=== PATIENT | male | born 1945 | race Caucasian/White ===

== ENCOUNTER 2018-11-09 20:29 | Inpatient (IN) | payer MEDICARE ==
[2018-11-09] MEDS ORDERED: NS 0.9% 1000 ML** 1,000 ML IV ONE (21:16)
--- NOTE | 2018-11-09 21:28 | ED ---
Neurological HPI - HPI Summary HPI Summary: The patient is a 73 year old male who is presenting to the [facility] from [facility] via ambulance with c/o of right hand numbness, weakness and bilateral leg weakness. The patient describes the onset of the symptoms as occurring at around 1500 to 1530. The patient was sitting down and on the internet when the right hand weakness occurred and the patient describes his legs as "spaghetti" and wobbly. The patient was seen at [facility] at around 1630 prior to [facility] arrival. A CT scan was taken at the [facility]. An aspirin was taken earlier in the day. The patient has been able to walk normally prior to onset of symptoms and was also able to drive. PMHx includes type 2 DM and HTN. Cardiac stent is also noted by the patient when discussing pervious medical history. Patient's reports of slurred speech prior to [facility] arrival and an inability for the patient to lift his legs. The pain is rated to be a 0/10 in severity. The Symptoms are alleviated by nothing. The symptoms are aggravated by nothing. - History of Current Complaint Chief Complaint: EDNeurologicalDeficit Stated Complaint: STROKE PER EMS Time Seen by Provider: 11/09/18 20:58 Hx Obtained From: Patient, Family/[employer] Captain - Onset/Duration: Sudden Onset Pain Intensity: 0 Pain Scale Used: 0-10 Numeric Aggravating: Nothing Alleviating: Nothing Associated Signs and Symptoms: Positive: Weakness - Right hand and bilateral leg weakness, Impaired Speech, Numbness - Right hand - Allergy/Home Medications Allergies/Adverse Reactions: Allergies Allergy/AdvReac Type Severity Reaction Status Date / Time No Known Allergies Allergy Verified 11/09/18 20:38 Home Medications: Home Medications Aspirin TAB* [Aspirin 325 MG TAB*] 325 mg PO DAILY 11/09/18 [History Confirmed 11/09/18] Canagliflozin (NF) [Invokana (NF)] 300 mg PO DAILY 11/09/18 [History Confirmed 11/09/18] Glimepiride 2 mg PO QAM 11/09/18 [History Confirmed 11/09/18] Ramipril CAP* [Altace CAP*] 10 mg PO DAILY 11/09/18 [History Confirmed 11/09/18] Simvastatin TAB(NF) [Zocor(NF)] 40 mg PO 1700 11/09/18 [History Confirmed ] Sitagliptin Phosphate [Januvia] 100 mg PO DAILY 11/09/18 [History Confirmed 07/18] PMH/Surg Hx/FS Hx/Imm Hx Endocrine/Hematology History: Reports: Hx Diabetes Cardiovascular History: Reports: Hx Hypertension Infectious Disease History: No Infectious Disease History: Denies: Traveled Outside the [place] in Last 30 Days - Family History Known Family History: Positive: Non-Contributory Family History: Reviewed and Noncontributory - Social History Occupation: Retired Lives: With Family Alcohol Use: None Substance Use Type: Reports: None Smoking Status (MU): Heavy Every Day Tobacco Smoker Review of Systems Constitutional: Negative Eyes: Negative ENT: Negative Positive: Epistaxis Cardiovascular: Negative Respiratory: Negative Gastrointestinal: Negative Genitourinary: Negative Musculoskeletal: Other - Inability to lift legs prior to Intial examination Skin: Negative Positive: Weakness - Right hand weakness and Bilateral Leg weakness, Numbness - Right hand, Slurred Speech Psychological: Normal All Other Systems Reviewed And Are Negative: Yes Physical Exam - Summary Physical Exam Summary: VITAL SIGNS: Reviewed. GENERAL: Patient is a well-developed and nourished (MALE OR FEMALE) who is lying comfortable in the stretcher. Patient is not in any acute respiratory distress. HEAD AND FACE: No signs of trauma. No ecchymosis, hematomas or skull depressions. No sinus tenderness. EYES: PERRLA, EOMI x 2, No injected conjunctiva, no nystagmus. EARS: Hearing grossly intact. Ear canals and tympanic membranes are within normal limits. MOUTH: Oropharynx within normal limits. NECK: Supple, trachea is midline, no adenopathy, no JVD, no carotid bruit, no c- spine tenderness, neck with full ROM. CHEST: Symmetric, no tenderness at palpation LUNGS: Clear to auscultation bilaterally. No wheezing or crackles. CVS: Regular rate and rhythm, S1 and S2 present, no murmurs or gallops appreciated. ABDOMEN: Soft, non-tender. No signs of distention. No rebound no guarding, and no masses palpated. Bowel sounds are normal. EXTREMITIES: FROM in all major joints, no edema, no cyanosis or clubbing. NEURO: Right facial droop; Right Upper Extremity Drift; Difficulty ambulating SKIN: Dry and warm Triage Information Reviewed: Yes Vital Signs On Initial Exam: Initial Vitals Temp Pulse Resp BP Pulse Ox 98.5 F 69 19 145/91 97 11/09/18 20:34 11/09/18 20:34 11/09/18 20:34 11/09/18 20:34 11/09/18 20:34 Vital Signs Reviewed: Yes Diagnostics - Vital Signs Vital Signs Temp Pulse Resp BP Pulse Ox 11/09/18 20:38 64 23 140/89 96 11/09/18 20:34 98.5 F 69 19 145/91 97 - Laboratory Result Diagrams: 11/09/18 21:45 11/09/18 21:45 Lab Statement: Any lab studies that have been ordered have been reviewed, and results considered in the medical decision making process. - Radiology Chest X-Ray Radiology Interpretation Completed By: ED Physician Summary of Radiographic Findings: Chest X-ray reveals no acute processes as per ED Physician. - CT Brain CT CT Interpretation Completed By: Radiologist Summary of CT Findings: Brain CT reveals as per radiologist. 1. Small focus of low density involving the left lentiform nucleus extending to. the gómez radiata concerning for acute left MCA infarct. 2. No acute intracranial hemorrhage. ED physician has reviewed this radiology report. Head and Neck CTA CT Interpretation Completed By: Radiologist Summary of CT Findings: Head and Neck CTA reveals as per radiologist,. Head CTA reveals 1. No hemodynamically significant stenosis or large vessel occlusion. 2. 2 mm right MCA bifurcation aneurysm. Neck CTA reveals No hemodynamically significant stenosis. The ED Physician has reviewed these radiology findings. - EKG 2130 EKG Rhythm: Sinus Bradycardia - [address] Segment: Non-Specific Summary of EKG Findings: EKG at 2130 Reveals 58 bpm sinus bradycardia; PACs and nonspecific ST wave changes. NIH Scale - NIH Scale Level of Consciousness: Alert/Keenly Responsive Ask Patient the Month and His/Her Age: Both Correct Ask Pt to Open/Close Eyes and [place]/Release Non-Paretic Hand: Both Correctly Best Gaze (Only Horizontal Eye Movement): Normal Visual Field Testing: No Visual Loss Facial Paresis-Pt to Smile & Close Eyes or Grimace Symmetry: Complete Paralysis Motor Function - Right Arm: Effort Against [place] Motor Function - Left Arm: No Drift-Holds 10 Seconds Motor Function - Right Leg: No Drift-Holds 10 Seconds Motor Function - Left Leg: No Drift-Holds 10 Seconds Limb Ataxia-Must be out of Proportion to Weakness Present: Present in One Limb Sensory (Use Pinprick to Test Arms/Legs/Trunk/Face): Normal Best Language (Describe Picture, Name Items): No Aphasia Dysarthria (Read Several Words): Slurs Some Words Extinction and Inattention: No Abnormality - Pt has difficulty standing and walking. Total Score: 7 NIH Stroke Scale Comment: Pt has difficulties standing and walking. Pulling toward the right. Re-Evaluation - Re-Evaluation 2139 Re-Evaluation Time: 21:40 Comment: We tested his gait and his ambulation. Course/Dx - Course Course Of Treatment: The patient is a 73 year old male who is presenting to the [facility] with a c/o of right hand weakness, bilateral leg wekaness and right hand numbness. Upon recieving the physical examination, the patient shows signs of right facial droop, right upper extremity drift and difficulty ambulating which are novel compared to baseline (patient states he is able to drive and walk without a walker prior to onset of current symptoms). Ishaan cortes was called at 2115. We discussed with the Stroke center the case at 2117 and they will contact the neurologist at [facility]. We discussed the case with the neurologist Dr. Keenan at [facility], and he recommended waiting for the Head CTA results. If the results are to show a large vessel occlusion, then he recommends beginning clot removal procedure. If there is no occlusion, then no clot removal procedure will be done. In the ED Course, the patient received an EKG, Chest X-ray, Head CTA, and Brain CT. Chest X-ray as per ED Physician reveals no acute processes. We reevaluated the patient in order to test his gait and ambulation at 2139. We discussed Head CTA , Brain CT scans and the [facility] CT scan findings with Dr. Keenan at 2204 and he does not at this time see clots in the CTA. He also does not see much of a difference between the two CT scans done at [facility] and at the [facility]. Critical Care time of 50 minutes. We discussed patient care with Dr. Jevon Ordoñez and he accepts patient care at this time (2319). The dx will be CVA. [place] [facility] - Diagnoses Provider Diagnoses: CVA (cerebral vascular accident) - Physician Notifications Discussed Care Of Patient With: Jevon Ordoñez - Patient Care discussion Time Discussed With Above Provider: 23:20 Instructed by Provider To: Admit As Observation - Critical Care Time Critical Care Time: 30-74 min - 50 minutes Discharge - Sign-Out/Discharge Documenting (check all that apply): Patient Departure - [place] [facility] [place] Discharge Plan Condition: Stable Disposition: ADMITTED TO [facility] Referrals: No Primary Care Phys,NOPCP [Primary Care Provider] - - Attestation Statements Document Initiated by Scribe: Yes Documenting Scribe: Ward Coelho Provider For Whom Scribe is Documenting (Include Credential): Dr. Junior Duggan Scribe Attestation: IWard, scribed for Dr. Junior Duggan on 11/09/18 at 7598. Status of Scribe Document: Ready
[2018-11-09] MEDS ORDERED: Iodixanol* (CONTRAST) 320 MG/ML 100 ML SDV IV ONE (21:30)
[2018-11-09 21:53] LABS: ABS Basophils 0.1 10^3/ul (0-0.2); ABS Eosinophils 0.2 10^3/ul (0-0.6); ABS Lymphocytes 1.9 10^3/ul (1.0-4.8); ABS Monocytes 0.8 10^3/ul (0-0.8); ABS Neutrophils 5.4 10^3/ul (1.5-7.7); ABS Nucleated RBC 0 10^3/ul; Eosinophil % 1.9 %; Hematocrit 44 % (36-46); Hemoglobin 14.7 g/dL (14.0-18.0); Lymphocyte % 23.4 %; Mean Corpuscular HGB Conc 33 g/dL (31-36); Mean Corpuscular Hemoglobin 30 pg (27-31); Mean Corpuscular Volume 89 fL (80-94); Mean Platelet Volume 9.1 fL (7.4-10.4); Nucleated Red Blood Cells % 0.1; Platelet Count 189 10^3/uL (150-450); Red Blood Count 4.95 10^6 /uL (4.18-5.48); Red Cell Distribution Width 15 % (10.5-15); White Blood Count 8.3 10^3/uL (3.5-10.8)
[2018-11-09 22:04] LABS: Activated Partial Thrombo Time 36.8 seconds (26.0-36.3); INR 0.93 (0.77-1.02)
[2018-11-09 22:11] LABS: Albumin 4.1 g/dL (3.2-5.2); Albumin/Globulin Ratio 1.4 (1-3); BUN/Creatinine Ratio 16.3 (8-20); Calcium 9.4 mg/dL (8.6-10.3); EGFR Non-African American 75.2 (>60); Globulin 2.9 g/dL (2-4); HDL Cholesterol 41.8 mg/dL; Potassium 3.8 mmol/L (3.5-5.0); Total Bilirubin 0.3 mg/dL (0.2-1.0)
[2018-11-09 23:04] LABS: Urine Appearance Clear; Urine Bacteria Absent (Absent); Urine Bilirubin Negative (Negative); Urine Blood 1+ (Negative); Urine Color Yellow; Urine Glucose 3+(>=500 mg/dL) (Negative); Urine Ketones Negative (Negative); Urine Nitrite Negative (Negative); Urine Protein Negative (Negative); Urine Red Blood Cell Trace(0-2/hpf) (Absent); Urine Specific Gravity 1.023 (1.010-1.030); Urine Urobilinogen Negative (Negative); Urine White Blood Cell Trace(0-5/hpf) (Absent)
[2018-11-10] MEDS ORDERED: Acetaminophen TAB* 325 MG PO ONE (01:11)
[2018-11-10] MEDS ORDERED: Acetaminophen SUPP* 650 MG SUPP PR ONE (01:21)
[2018-11-10] MEDS ORDERED: Nicotine Inhaler* 10 MG AMP INH PRN (02:31)
[2018-11-10] MEDS ORDERED: Ondansetron INJ* 2 MG/ML VIAL IV PRN (02:35)
[2018-11-10] MEDS ORDERED: NS 0.9% 1000 ML** 1,000 ML IV SCH ×2 (02:45→15:45)
[2018-11-10] MEDS: Heparin VIAL(*) 5000 UNITS/ML VIAL (FIVE THOUSAND) SUBCUT SCH ×3 (04:12→21:56)
[2018-11-10] MEDS: Acetaminophen TAB* 325 MG PO PRN ×2 (05:14→18:44)
--- NOTE | 2018-11-10 07:10 | HP ---
ADMISSION HISTORY AND PHYSICAL: DATE OF ADMISSION: PRIMARY CARE PROVIDER: Dr. Guy Wheat, [facility]. HEALTHCARE PROXY: His . CODE STATUS: Full. SOURCE OF INFORMATION: History obtained from interview with the patient and his . RELIABILITY: Good. CHIEF COMPLAINT: Right-sided weakness. HISTORY OF PRESENT ILLNESS: This is a 73-year-old man, lifetime heavy smoker, with hypertension and diabetes, CAD with a stent in 1999, but in his usual state of health, who woke up this morning, gener ally active. Around 3:00 p.m., was using his phone, was on Facebook and noticed that he could not pu sh the button, stood up, and his legs felt like spaghetti. This continued for about an hour and he b ady to develop slurred speech, for which he went to a walk-in clinic, was directed immediately to [facility] Emergency Room. He was there until approximately 7:30, at which time he was transferred to [facility] ED. ED arrival was 8:29. Based on review of records with the last known normal of 3:00 p.m., a co jones was called. TPA was not administered secondary to time of arrival, duration since onset of s ymptoms outside of the possible window. Since 3:00 p.m. until the time of evaluation, he identified worsening strength on his right and now the dense hemiparesis of right arm and right leg. His NIH St roke Scale was 4 on presentation. He has never had any history of TIAs or other strokes. He has no headache, lightheadedness, nausea, vomiting, sensation of choking, although he has not eaten since be ing at the emergency room. PAST MEDICAL HISTORY: Includes: 1. Type 2 diabetes. 2. Hypertension. 3. CAD with stents in 1999. 4. Pancreatitis. 5. Hyperlipidemia. 6. Cataract bilaterally. HOME MEDICATIONS: 1. Ramipril 10 mg daily. 2. Aspirin 325 mg daily. 3. Januvia 100 mg daily. 4. Glimepiride 2 mg daily. 5. Simvastatin 40 mg in the evening. 6. Invokana 300 mg daily. ALLERGIES: No known drug allergies. FAMILY HISTORY: No family history of CAD, but his father had a CVA. SOCIAL HISTORY: Heavy tobacco for 50 to 60 years, currently half a pack per day, 4 packs per day at its peak. No alcohol. 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 Recently sold his home, is living wit h his brother in [place] until moving into a new place [place] There are approximately 15 to 20 stairs to get into his current home. REVIEW OF SYSTEMS: As per HPI. PHYSICAL EXAMINATION VITAL SIGNS: Blood pressure 140/89, heart rate is 64, respiratory rate is 19, 96% on room air, T-max 98.5. DIAGNOSTIC STUDIES/LAB DATA: Labs reviewed: Largely bland. Cbask-jh-[id number] glucose 143. Nonfasting cholesterol is 100 with an LDL of 34 and HDL of 41. Data reviewed: CT of his brain, small focus of low density involving the left lentiform nucleus exte nding to the gómez radiata, concerning for acute left MCA infarct. Head CTA, impression: No hemody namically significant stenosis. Chest x-ray, no active cardiopulmonary disease on preliminary interpretation by this author. Follow formal interpretation in the morning. EKG: Sinus bradycardia with ventricular rate of 50 beats, borderline left axis, early R-wave progres jaydon. No ST or T-wave changes. ASSESSMENT AND PLAN: This 73-year-old man with past medical history of hypertension, diabetes, hyper lipidemia, heavy tobacco use, coronary artery disease presenting with suspected left middle cerebral artery stroke. 1. Acute stroke. Continue aspirin in the morning and Plavix. Neuro consultation. Add on hemoglobin A1c to ER labs. We will not recheck lipids given low levels nonfasting. MRI ordered and pending. Ordered transthoracic echocardiogram with bubble study. Bedside swallow eval; if fails, formal swall ow eval. PT/OT and speech therapy ordered as well as neuro checks. 2. Hypertension. Holding lisinopril, permitting hypertension. 3. Type 2 diabetes. Continue Januvia and glimepiride. Invokana not available. Fingerstick glucose monitoring, can initiate insulin if necessary inpatient, but would recommend medication that patient can leave on instead of sliding scale insulin. I note that he is not on metformin for unknown reason s to this author. 4. Tobacco abuse. Counseled cessation, start with nicotine inhaler. 5. DVT prophylaxis. Heparin subcu to start in the morning. [id number]/[facility] #: [id number]
[2018-11-10] MEDS: CMCS: SitaGLIPtin (NF) 100 MG TAB PO SCH (08:52)
[2018-11-10] MEDS: Clopidogrel TAB* 75 MG PO SCH (08:52)
[2018-11-10] MEDS: Aspirin TAB* 325 MG PO SCH (08:52)
[2018-11-10] MEDS: CMCS: Glimepiride (NF) 2 MG TAB PO SCH (08:52)
[2018-11-10] MEDS ORDERED: Aspirin 81 mg CHEW TAB* 81 MG TAB.CHEW PO SCH (09:00)
--- NOTE | 2018-11-10 09:22 | PN ---
Subjective Date of Service: 11/10/18 Interval History: HD#2 on 11/10 ID: 73 yo M PMH tob use, HTN, CAD s/p PCI, NIDDM, who presented with ~10 hours of stroke sx to ED found to have L MCA CVA with R hemiparesis, no large vessel obstruction, admitted for stroke workup Overnight no acute events, VSS, voiding freely Labs: Normal save for hypergly This afternoon seen in bed, patient is visibly distraught, crying and frustrated , garbled speech but understandable, with denture plate in- denies pain anywhere , has recollection of events. No CP, SOB, some mild plantar flexion on R LE, RUE with 0/5 strength and persistent R facial droop Objective Active Medications: Acetaminophen (Tylenol Tab*) 650 mg PO Q4H PRN PRN Reason: FEVER/PAIN Last Admin: 11/10/18 05:14 Dose: 650 mg Aspirin (Aspirin Tab*) 325 mg PO DAILY [facility] Last Admin: 11/10/18 08:52 Dose: 325 mg Atorvastatin Calcium (Lipitor*) 20 mg PO 1700 NANO Clopidogrel Bisulfate (Plavix Tab*) 75 mg PO DAILY [facility] Last Admin: 11/10/18 08:52 Dose: 75 mg Glimepiride (Glimepiride (Nf)) 2 mg PO QAM [facility]; Protocol Last Admin: 11/10/18 08:52 Dose: 2 mg Heparin Sodium (Porcine) (Heparin Vial(*)) 5,000 units SUBCUT Q8HR [facility] Last Admin: 11/10/18 04:12 Dose: 5,000 units Sodium Chloride (Ns 0.9% 1000 Ml) 1,000 mls @ 100 mls/hr IV PER RATE [facility] Stop: 11/10/18 12:44 Last Admin: 11/10/18 04:12 Dose: 100 mls/hr Nicotine (Nicotine Inhaler*) 10 mg INH Q2H PRN PRN Reason: CRAVING Ondansetron HCl (Zofran Inj*) 4 mg IV Q4H PRN PRN Reason: NAUSEA/VOMITING Sitagliptin Phosphate (Januvia (Nf)) 100 mg PO DAILY [facility]; Protocol Last Admin: 11/10/18 08:52 Dose: 100 mg Vital Signs - 8 hr 11/10/18 11/10/18 11/10/18 01:29 01:58 02:00 Temperature Pulse Rate 68 63 64 Respiratory 18 16 22 Rate Blood Pressure 122/75 121/84 (mmHg) O2 Sat by Pulse 96 95 97 Oximetry 11/10/18 11/10/18 11/10/18 02:29 02:59 03:00 Temperature Pulse Rate 71 71 73 Respiratory 18 18 14 Rate Blood Pressure 145/78 127/88 (mmHg) O2 Sat by Pulse 96 94 94 Oximetry 11/10/18 11/10/18 11/10/18 03:22 03:25 08:00 Temperature 98.5 F 97.5 F Pulse Rate 79 73 Respiratory 14 17 18 Rate Blood Pressure 127/88 137/68 (mmHg) O2 Sat by Pulse 94 95 Oximetry 11/10/18 08:05 Temperature 97.8 F Pulse Rate 53 Respiratory 18 Rate Blood Pressure 129/73 (mmHg) O2 Sat by Pulse 97 Oximetry Oxygen Devices in Use Now: None Appearance: Lying in bed in distress, tearful and crying Eyes: PERRLA Ears/Nose/Mouth/Throat: Mucous Membranes Moist, - - Upper denture plate Neck: NL Appearance and Movements; NL JVP Respiratory: Clear to Auscultation Cardiovascular: NL Sounds; No Murmurs; No JVD, RRR Abdominal: NL Sounds; No Tenderness; No Distention, No Hepatosplenomegaly Lymphatic: No Cervical Adenopathy Extremities: No Edema Skin: No Rash or Ulcers Neurological: Alert and Oriented x 3, - - Sig dysarthria-Cranial nerves: R facial droop, did not assess visual padilla. Strength: RUE 0/5, gross sensory intact, RLE plantar flexion only 2/5 gross sensory intact, LUE 5/5, LLE 5/5 Result Diagrams: 11/09/18 21:45 11/09/18 21:45 Assess/Plan/Problems-Billing Assessment: 73 yo M PMH tob use, HTN, CAD s/p PCI, NIDDM, who presented with ~10 hours of stroke sx to ED found to have L possible MCA CVA with R hemiparesis, no large vessel obstruction, admitted for stroke workup - Patient Problems (1) Acute ischemic left MCA stroke Current Visit: Yes Status: Acute Code(s): I63.512 - CEREB INFRC D/T UNSP OCCLS OR STENOS OF LEFT MID CEREB ART SNOMED Code(s): 567368462 Comment: -Head of bed flat, avoid hypotension, Normal saline 100cc/hr for addnl 1 L -Neuro checks -Neurology consulted, appreciate recs -Asa/Plavix (Asa at 325), Atorva 20 -Echo with bubble, MRI -PT/OT (2) Hypertension Current Visit: Yes Status: Acute Code(s): I10 - ESSENTIAL (PRIMARY) HYPERTENSION SNOMED Code(s): 55812193 Comment: -Hold home meds for now (3) Diabetes Current Visit: Yes Status: Acute Code(s): E11.9 - TYPE 2 DIABETES MELLITUS WITHOUT COMPLICATIONS SNOMED Code(s): 01241113 Comment: -Type 2, not on Metformin, continue Sitagliptin and Glimeperide, holding canaglaflozin (4) Tobacco dependence Current Visit: Yes Status: Acute Code(s): F17.200 - NICOTINE DEPENDENCE, UNSPECIFIED, UNCOMPLICATED SNOMED Code(s): 30079305 Comment: -Offer NRT PRN (5) CAD (coronary artery disease) Current Visit: Yes Status: Acute Code(s): I25.10 - ATHSCL HEART DISEASE OF [place] CORONARY ARTERY W/O ANG PCTRS SNOMED Code(s): 38278964 Comment: -s/p PCI -On 2/2 prvention: Asa, Statin, holding ALYSON (6) Anxiety Current Visit: Yes Status: Acute Code(s): F41.9 - ANXIETY DISORDER, UNSPECIFIED SNOMED Code(s): 95684253 Comment: -Largely 2/2 to stroke diagnosis, situational, offer PRN atarax (7) DVT prophylaxis Current Visit: Yes Status: Acute Code(s): VMM3934 - SNOMED Code(s): 461251945 Comment: -SQ (8) Full code status Current Visit: Yes Status: Acute Code(s): Z78.9 - OTHER SPECIFIED HEALTH STATUS SNOMED Code(s): 559607401 Status and Disposition: Neurology following, needs PT/OT and echo prior to d/c
[2018-11-10] MEDS: Atorvastatin* 20 MG TAB PO SCH (15:09)
--- NOTE | 2018-11-10 15:18 | CONS ---
NEUROLOGY CONSULTATION: DATE OF CONSULT: 11/10/18 LOCATION: He is in room 438. REFERRING PHYSICIAN: Dr. Ordoñez. CHIEF COMPLAINT: Right-sided weakness. HISTORY OF PRESENT ILLNESS: Velasquez Whelan is a 73-year-old right-handed man, who at about 3 o'clock yesterday noted that he was having difficulty standing up. He realized his right side had become weak. He drove himself to the walk- in clinic adjacent to [facility]. He was transferred to the emergency room. Subsequently, he was transferred to [facility] Emergency Room at about 8:30 in the evening. Evaluation in the emergency room was notable for right hemiparesis. According to Dr. Ordoñez's admitting history and physical, he had a dense hemiparesis of the right arm and right leg. According to Dr. Duggan's emergency room examination, he had a right facial droop, right upper extremity drift, and difficulty ambulating. Initial CT scan of the brain was interpreted by the radiologist as showing low density involving the left lentiform nucleus extending into the gómez radiata. CT angiogram of the brain was interpreted as showing no significant stenosis or large vessel occlusions as well as a 2-mm right MCA bifurcation aneurysm. There is no prior history of transient ischemic attack or stroke. He has a history of coronary artery disease, status post stenting; hypertension; hyperlipidemia; diabetes. He denies any sense of numbness in the right side or difficulty swallowing. He has not had any problems coming up with words. He denies change in vision or headaches. Only recent change in medications was metformin was discontinued because of diarrhea and Invokana was started in the last couple of months. PAST MEDICAL HISTORY: Notable for diabetes, coronary artery disease, hypertension, and tobacco dependence. MEDICATIONS: At home, consists of: 1. Aspirin 325 mg p.o. q. day. 2. Invokana 300 mg p.o. q. day. 3. Glimepiride 2 mg p.o. q. day. 4. Ramipril 10 mg p.o. q. day. 5. Simvastatin 40 mg p.o. q. day. 6. Januvia 100 mg p.o. q. day. ALLERGIES: He has no known drug allergies. SOCIAL HISTORY: He socially lives at home with his . He is an ongoing tobacco smoker. He does not drink alcohol. REVIEW OF SYSTEMS: Negative for recent falls, fevers, or infections. He takes his medications on a regular basis. His blood glucose has not been well controlled according to his after a switch from metformin to Invokana. He had some diarrhea on metformin, but then it resolved. His family believes he has lost weight this past year, but there is no specific numbers known. No recent increase in shortness of breath or chest pain. No history of epilepsy or head trauma. PHYSICAL EXAM: He is a somewhat overly thin man who looks a bit older than his stated age. He has been afebrile throughout his hospital stay. Blood pressure most recently is 129/73, it was 145/91 when he first came to the floor. Heart rates in the 60s and regular, respiratory rate is 19, and oxygen saturation is 97% on room air. Heart tones are distant and I do not hear any murmurs. There are no cervical bruits. Oral mucosa is moist and atraumatic. Lungs are clear bilaterally. Neurological exam, pupils react equally from 2.5 down to 2 mm. Eye movements are full. Funduscopic exam reveals silver wiring, but no hemorrhages. Optic discs are sharp. Visual padilla are full to confrontation. Facial musculature is notable for a dense central pattern right facial weakness. Facial sensation to light touch and pin is symmetrical. Speech is dysarthric. Palate pulls to the left with phonation, but tongue protrudes in the midline. Hearing is intact. Neck strength is normal. Motor exam reveals a flaccid right upper extremity with no volitional movement. He is able to extend the right knee with about a 30-degree extensor lag. He is able to raise the right hip up weakly, but not provide resistance. He has no dorsiflexion strength in the right foot, but some relatively minimal plantarflexion strength is retained. He has normal strength of the left arm and left leg proximally and distally. Sensory exam to pin and light touch is symmetrical in upper and lower extremities. Reflexes are brisk, brisker on the right side than the left. He has a right Babinski sign where the left is plantar. Coordination in the left arm is normal. He is alert with intact memory and fluent language. There is no evidence of word- finding problems. He is aware of his deficits. DIAGNOSTIC STUDIES/LAB DATA: CT of the brain images are reviewed personally. There is loss of vazquez-white matter demarcation of the left lentiform nucleus into the left internal capsule. CT angiogram of the brain is reviewed. There is no significant intracranial or extracranial stenosis. There is a tiny 2-mm aneurysm at the right middle cerebral artery bifurcation. Other laboratory data is notable for a normal CBC on admission, normal INR 0.93 and borderline elevated PTT at 36.8. Chemistry profile notable for carbon dioxide at 20, glucose of 117, hemoglobin A1c this morning is 8.5%. Cholesterol was 100 yesterday evening and LDL 34. The rest of the chemistry profile was unremarkable. Urinalysis, 11/09/18, notable for 3+ glucose. EKG revealed some atrial ectopy, but otherwise sinus rhythm. Chest x-ray is interpreted as no evidence for acute disease. The lungs are described as hyperinflated and clear. IMPRESSION AND PLAN: Impression is that of subcortical left hemisphere infarction. Typical location for pure motor hemiparesis would be the posterior limb of the internal capsule. It seems that he worsened from the time he presented to [facility] to last night. He may have worsened overnight as well from his description. I would recommend that he be kept in bed with the head of bed flat other than when he is up to eat. Recommend that he be kept well hydrated. Plavix was added last evening and I agree with dual-antiplatelet therapy with aspirin 325 mg and Plavix 75 mg. He should have an MRI of the brain without contrast and a transthoracic echocardiogram. The likely mechanism of his stroke is small vessel lacunar disease in a patient with hypertension and diabetes and so I do not think he necessarily needs a transesophageal echocardiogram unless there are abnormalities on his transthoracic echo which would suggest otherwise. His lipid profiles are quite low if not too low. He is currently on atorvastatin 20 mg since admission and I agree with that as well. I encouraged him to try to quit smoking and told him that smoking is a risk factor for stroke in addition to heart disease and lung disease. His diabetes is being treated and should continue to be monitored. I will continue to follow him along with you. [id number]/[facility] #: [id number] NUPUR
[2018-11-10] MEDS ORDERED: hydrOXYzine HCL TAB* 10 MG PO PRN (15:43)
[2018-11-10] MEDS ORDERED: Nicotine PATCH 14 MG/24 HR* PATCH TRANSDERM PRN (15:44)
[2018-11-10] MEDS ORDERED: Nicotine Patch Removal NOTE PATCH OFF PRN (15:55)
[2018-11-11] MEDS: Heparin VIAL(*) 5000 UNITS/ML VIAL (FIVE THOUSAND) SUBCUT SCH ×3 (05:27→22:26)
[2018-11-11 06:41] LABS: BUN/Creatinine Ratio 18.5 (8-20); Calcium 8.9 mg/dL (8.6-10.3); EGFR African American 97.9 (>60); EGFR Non-African American 80.9 (>60); Potassium 3.8 mmol/L (3.5-5.0)
[2018-11-11] MEDS: Clopidogrel TAB* 75 MG PO SCH (10:32)
[2018-11-11] MEDS: CMCS: Glimepiride (NF) 2 MG TAB PO SCH (10:32)
[2018-11-11] MEDS: CMCS: SitaGLIPtin (NF) 100 MG TAB PO SCH (10:32)
[2018-11-11] MEDS: Aspirin TAB* 325 MG PO SCH (10:32)
--- NOTE | 2018-11-11 12:48 | ECHO ---
Patient: DAVON MEDINA [facility] Rec#: [id number] : 1945 Date: 11/11/2018 Age: 73y Height: 178 cm / 70.1 in Weight: 68 kg / 149.9 lbs Sex: M BSA: 1.85 Room#: 438 Admit Date#: 11/10/2018 Type: Inpatient Referring: MARCO ANTONIO MENDOZA Reading: Juan J Urrutia MD Front Desk Receptionist: Romina Alarcon RDCS,RDMS Transthoracic Echocardiogram Indication: CVA BP: 125/52 HR: 68 Rhythm: NSR with PACs Findings History: CAD, HTN, smoker, DM Technical Comments: The study quality is fair. The study is technically limited due to the patient's smoking history. Left Ventricle: The left ventricular chamber size is normal. Mild concentric left ventricular hypertrophy is observed. There is a prominent septal knuckle. The estimated ejection fraction is 60-65%. Abnormal left ventricular diastolic function is observed. Abnormal left ventricular diastolic filling is observed, consistent with impaired relaxation. Left Atrium: The left atrial chamber size is normal. Right Ventricle: The right ventricular chamber size and systolic function are within normal limits. Right Atrium: The right atrial cavity size is normal. The bubble study is negative. A patent foramen ovale is not demonstrated with color Doppler and agitated contrast. Aortic Valve: The aortic valve is trileaflet. The aortic valve leaflets are mildly thickened. There is no evidence of aortic regurgitation. There is no evidence of aortic stenosis. Mitral Valve: The mitral valve leaflets are mildly thickened. There is a trace of mitral regurgitation. There is no evidence of mitral stenosis. Tricuspid Valve: The tricuspid valve leaflets are normal. There is trace tricuspid regurgitation. No pulmonary hypertension is noted. Pulmonic Valve: The pulmonic valve structure is not well visualized. There is no evidence of pulmonic regurgitation. Pericardium: There is no significant pericardial effusion. Aorta: The ascending aorta is not well visualized. There is no dilatation of the aortic arch. The aortic root is normal in size. Pulmonary Artery: The main pulmonary artery is not well visualized. Venous: The inferior vena cava is not visualized. Contrast: Intravenous agitated saline contrast was used to assess intracardiac shunting. Summary: There was not any prior study for comparison. Conclusions Mild concentric left ventricular hypertrophy is observed. The estimated ejection fraction is 60-65%. Abnormal left ventricular diastolic filling is observed, consistent with impaired relaxation. The bubble study is negative. A patent foramen ovale is not demonstrated with color Doppler and agitated contrast. The aortic valve leaflets are mildly thickened. There is a trace of mitral regurgitation. There is trace tricuspid regurgitation. Measurements Name Value Normal Range RVIDd (AP) 2D 2.8 cm (0.9 - 2.6) RVDdMajor (2D) 2.8 cm (2.2 - 4.4) RAd ISD 4CH 4.6 cm (3.4 - 4.9) RA (A4C)W 4.4 cm (2.9 - 4.6) IVSd (2D) 1.3 cm (0.6 - 1) LVPWd (2D) 1.2 cm (0.6 - 1) LVIDd (2D) 4.2 cm (3.6 - 5.4) LVIDs (2D) 2.5 cm - LV FS (2D) 41 % (25 - 45) Aortic Annulus 2.2 cm (1.4 - 2.6) Ao root diameter (2D) 3.2 cm (2.1 - 3.5) Aortic arch 3 cm (1.8 - 3.4) LA dimension (AP) 2D 3.7 cm (2.3 - 3.8) LAd ISD 4CH 5.1 cm (2.9 - 5.3) LA ISD 4CH W 4 cm (2.5 - 4.5) Name Value Normal Range LA ESV BP (A/L) index 28 ml/m2 - Name Value Normal Range MV E-wave Vmax 0.6 m/sec - MV deceleration time 243 msec - MV A-wave Vmax 0.8 m/sec - MV E:A ratio 0.8 ratio - LV septal e' Vmax 0.08 m/sec - LV lateral e' Vmax 0.09 m/sec - LV E:e' septal ratio 8 ratio - LV E:e' lateral ratio 7 ratio - Name Value Normal Range AV Vmax 1.7 m/sec - AV VTI 34 cm - AV peak gradient 12 mmHg - AV mean gradient 6 mmHg - LVOT Vmax 1 m/sec - LVOT VTI 22 cm - LVOT peak gradient 4 mmHg - LVOT mean gradient 2 mmHg - EDGAR Vmax 0.5 m/sec - Name Value Normal Range TR Vmax 2.1 m/sec - TR peak gradient 17 mmHg - RAP 3 mmHg - RVSP 20 mmHg - Name Value Normal Range PV Vmax 0.9 m/sec - PV peak gradient 3.2 mmHg -
--- NOTE | 2018-11-11 13:25 | CONS ---
NEUROLOGY FOLLOWUP CONSULTATION NOTE: DATE OF CONSULT: 11/11/18 HOSPITALIST: Dr. Billingsley. LOCATION: He is inpatient, room 438. CHIEF COMPLAINT: Right-sided weakness. INTERVAL HISTORY: Mr. Whelan feels better today and noted that he woke at about 3:00 a.m. and noted some pain in his right leg. He then realized he could not lift his right leg up. He still has no voluntary movement of his right hand that he is aware of. He is eating his lunch and has no problem swallowing. He has not noticed any new numbness or difficulty coming up with words. No headaches or problems with vision. MEDICATIONS: Reviewed. He is on: 1. Plavix 75 mg p.o. q. day. 2. Aspirin 325 mg p.o. q. day. 3. Glimepiride 2 mg p.o. q.a.m. 4. Subcutaneous heparin 5000 units q.8 hours. 5. Atarax 10 mg p.o. q.6 hours as needed for anxiety. 6. Nicotine inhaler q.2 hours p.r.n. 7. Nicotine patch 14 mcg q. day. 8. Zofran 4 mg IV q.4 hours p.r.n. nausea. 9. Januvia 100 mg p.o. q. day. 10. Atorvastatin 20 mg p.o. q. day. PHYSICAL EXAM: On exam, he is well hydrated. Temperature is 98.5, blood pressure 132/72, heart rate about 60 and regular, respiratory rate is 20, and oxygen saturation is 95% on room air. Neurological Exam: He has central pattern right facial weakness. He has a mild dysarthria, but speech is intelligible. Eye movements are normal. He is able to exhibit some right triceps contraction and very minimal resistance. He is not able to move any of the distal right upper extremity muscles. He is able to raise the right lower extremity off the bed and keep the quadriceps relatively stiff. It drifts down after about 5 seconds. He has normal movement of the left arm and left leg. Language is fluent. Memory is intact. DIAGNOSTIC STUDIES/LAB DATA: From today, notable for chemistry profile with a chloride of 115, glucose of 143. The rest of the chemistry profile is unremarkable. He had an echocardiogram done a little early this morning and the results are pending. He has an MRI of the brain ordered for tomorrow. IMPRESSION AND PLAN: Impression is of that a subcortical left hemispheric stroke with some improvement in right lower extremity function. We will continue to do antiplatelet therapy with the intention to give him antiplatelet monotherapy after about 30 days. I would continue to allow permissive hypertension. We will keep him well hydrated. I think we can try to get him up at this point, but if he develops worsened right leg weakness, I will get him flat again. I will continue to follow him along with you. [id number]/[facility] #: [id number] NUPUR
[2018-11-11] MEDS: Acetaminophen TAB* 325 MG PO PRN (15:17)
[2018-11-11] MEDS: Atorvastatin* 20 MG TAB PO SCH (15:17)
--- NOTE | 2018-11-11 16:27 | PN ---
Subjective Date of Service: 11/11/18 Interval History: VS: WNL; continue permissive HTN Lab: 11/11 BMP Chloride 115, elevated BS Tele: NSR with PAC ECHO: negative for PFO Pt states that he is feeling well today. He has just been cleared to walk unless RLE weakness worsens, per neuro, but has yet to walk. He continues to have decreased motor to R face and no motor to RUE. RLE has much improved movement, although continues to struggle with dorsi/plantarflexion. He denies CP, SOB, abd pain. Objective Active Medications: Acetaminophen (Tylenol Tab*) 650 mg PO Q4H PRN Aspirin (Aspirin Tab*) 325 mg PO DAILY NANO Atorvastatin Calcium (Lipitor*) 20 mg PO 1700 NANO Clopidogrel Bisulfate (Plavix Tab*) 75 mg PO DAILY NANO Glimepiride (Glimepiride (Nf)) 2 mg PO QAM NANO; Protocol Heparin Sodium (Porcine) (Heparin Vial(*)) 5,000 units SUBCUT Q8HR NANO Hydroxyzine HCl (Atarax Tab*) 10 mg PO Q6H PRN Nicotine (Nicotine Inhaler*) 10 mg INH Q2H PRN Nicotine (Nicotine Patch 14 Mg/24 Hr*) 1 patch TRANSDERM DAILY PRN Ondansetron HCl (Zofran Inj*) 4 mg IV Q4H PRN Pharmacy Profile Note (Nicotine Patch Removal Note*) 1 note PATCH OFF 2100 PRN Sitagliptin Phosphate (Januvia (Nf)) 100 mg PO DAILY NANO; Protocol Vital Signs: Temp Pulse Resp BP Pulse Ox 98.2 F 56 20 149/63 98 11/11/18 16:12 11/11/18 16:12 11/11/18 16:12 11/11/18 16:12 11/11/18 16:12 Oxygen Devices in Use Now: None Appearance: Pt is sitting up in bed. He has asymetrical facial features. He appears to be in no acute distress. Speech somewhat dysarthritic, but understandable. Eyes: No Scleral Icterus, PERRLA Ears/Nose/Mouth/Throat: NL Teeth, Lips, Gums, Clear Oropharnyx, Mucous Membranes Moist, - - Tongue midline. Face asymetrical with R facial droop Neck: NL Appearance and Movements; NL JVP, Trachea Midline Respiratory: Symmetrical Chest Expansion and Respiratory Effort, Clear to Auscultation Cardiovascular: NL Sounds; No Murmurs; No JVD, RRR, No Edema Abdominal: NL Sounds; No Tenderness; No Distention, No Hepatosplenomegaly Extremities: No Edema, No Clubbing, Cyanosis Neurological: Alert and Oriented x 3, NL Sensation, - - RUE 0/5 strength; LLE 5/ 5 Result Diagrams: 11/09/18 21:45 11/11/18 05:34 Microbiology and Other Data: Microbiology 11/09/18 21:17 Urine Culture - Final Urine No Growth (<1,000 CFU/mL) Assess/Plan/Problems-Billing Assessment: 73 yo M PMH tob use, HTN, CAD s/p PCI, NIDDM, who presented with ~10 hours of stroke sx to ED found to have L possible MCA CVA with R hemiparesis, no large vessel obstruction, admitted for stroke workup. - Patient Problems (1) Acute ischemic left MCA stroke Comment: -Permissive hypertension; may walk unless RLE weakness develops, then back to HOB flat -Neuro checks -Neurology consulted, appreciate recs -Asa/Plavix (Asa at 325), Atorvastatin 20 -Echo negative for PFO -Awaiting MRI -PT/OT ordered (2) CAD (coronary artery disease) Comment: -s/p PCI -On 2/2 prevention: Asa, Statin, holding ALYSON (3) Diabetes Comment: -Type 2, not on Metformin -Continue Sitagliptin and Glimeperide, holding canaglaflozin (4) Anxiety Comment: -Largely 2/2 to stroke diagnosis, situational, offer PRN atarax (5) Hypertension Comment: -Allowing permissive HTN -Hold home meds for now (6) Tobacco dependence Comment: -Offer NRT PRN (7) DVT prophylaxis Comment: -SQH (8) Full code status Status and Disposition: Neurology following, needs PT/OT, MRI prior to D/C.
[2018-11-12] MEDS: Acetaminophen TAB* 325 MG PO PRN ×3 (01:04→21:44)
[2018-11-12 06:05] LABS: ABS Basophils 0 10^3/ul (0-0.2); ABS Eosinophils 0.2 10^3/ul (0-0.6); ABS Lymphocytes 2.2 10^3/ul (1.0-4.8); ABS Monocytes 0.7 10^3/ul (0-0.8); ABS Nucleated RBC 0 10^3/ul; Eosinophil % 2.5 %; Hematocrit 43 % (36-46); Hemoglobin 14.2 g/dL (14.0-18.0); Lymphocyte % 31.1 %; Mean Corpuscular HGB Conc 33 g/dL (31-36); Mean Corpuscular Hemoglobin 30 pg (27-31); Mean Corpuscular Volume 90 fL (80-94); Mean Platelet Volume 9.4 fL (7.4-10.4); Nucleated Red Blood Cells % 0.1; Platelet Count 188 10^3/uL (150-450); Red Blood Count 4.81 10^6 /uL (4.18-5.48); Red Cell Distribution Width 15 % (10.5-15); White Blood Count 7.2 10^3/uL (3.5-10.8)
[2018-11-12] MEDS: Heparin VIAL(*) 5000 UNITS/ML VIAL (FIVE THOUSAND) SUBCUT SCH ×3 (06:18→21:44)
[2018-11-12 06:24] LABS: BUN/Creatinine Ratio 20.6 (8-20); EGFR African American 92.1 (>60); EGFR Non-African American 76.1 (>60); Potassium 3.7 mmol/L (3.5-5.0)
[2018-11-12] MEDS: CMCS: Glimepiride (NF) 2 MG TAB PO SCH (10:03)
[2018-11-12] MEDS: Aspirin TAB* 325 MG PO SCH (10:03)
[2018-11-12] MEDS: CMCS: SitaGLIPtin (NF) 100 MG TAB PO SCH (10:05)
[2018-11-12] MEDS: Clopidogrel TAB* 75 MG PO SCH (10:05)
[2018-11-12] MEDS: Atorvastatin* 20 MG TAB PO SCH (16:49)
--- NOTE | 2018-11-12 16:51 | PN ---
Subjective Date of Service: 11/12/18 Interval History: Pt is feeling well today. He has been walking to and from bathroom, but has not been up with PT yet. Has worked with OT. He continues to improve RLE movement, but RUE is still nonfunctioning at this time. He is seeking placement in [facility], such as [facility] for rehabilitation and PT. Objective Active Medications: Acetaminophen (Tylenol Tab*) 650 mg PO Q4H PRN Aspirin (Aspirin Tab*) 325 mg PO DAILY NANO Atorvastatin Calcium (Lipitor*) 20 mg PO 1700 NANO Clopidogrel Bisulfate (Plavix Tab*) 75 mg PO DAILY NANO Glimepiride (Glimepiride (Nf)) 2 mg PO QAM NANO; Protocol Heparin Sodium (Porcine) (Heparin Vial(*)) 5,000 units SUBCUT Q8HR NANO Hydroxyzine HCl (Atarax Tab*) 10 mg PO Q6H PRN Nicotine (Nicotine Inhaler*) 10 mg INH Q2H PRN Nicotine (Nicotine Patch 14 Mg/24 Hr*) 1 patch TRANSDERM DAILY PRN Ondansetron HCl (Zofran Inj*) 4 mg IV Q4H PRN Pharmacy Profile Note (Nicotine Patch Removal Note*) 1 note PATCH OFF 2100 PRN Sitagliptin Phosphate (Januvia (Nf)) 100 mg PO DAILY NANO; Protocol Vital Signs: Temp Pulse Resp BP Pulse Ox 98 F 59 20 154/72 97 11/12/18 16:11 11/12/18 16:11 11/12/18 16:11 11/12/18 16:11 11/12/18 16:11 Oxygen Devices in Use Now: None Appearance: Pt is sitting in bed with LE elevated. He appears to be in no acute distress. Eyes: No Scleral Icterus, PERRLA Ears/Nose/Mouth/Throat: NL Teeth, Lips, Gums, Clear Oropharnyx, Mucous Membranes Moist, - - R facial asymetry; sensation intact. Neck: NL Appearance and Movements; NL JVP, Trachea Midline Respiratory: Symmetrical Chest Expansion and Respiratory Effort, Clear to Auscultation Cardiovascular: NL Sounds; No Murmurs; No JVD, RRR, No Edema, - - Tele NSR Abdominal: NL Sounds; No Tenderness; No Distention, No Hepatosplenomegaly Extremities: No Edema, No Clubbing, Cyanosis Neurological: Alert and Oriented x 3, - - B/l LE 5/5; RUE 0/5. Sensation to all extremities intact b/l Result Diagrams: 11/12/18 05:26 11/12/18 05:26 Microbiology and Other Data: Microbiology 11/09/18 21:17 Urine Culture - Final Urine No Growth (<1,000 CFU/mL) Assess/Plan/Problems-Billing Assessment: 73 yo M PMH tob use, HTN, CAD s/p PCI, NIDDM, who presented with ~10 hours of stroke sx to ED found to have L possible MCA CVA with R hemiparesis, no large vessel obstruction, admitted for stroke workup. - Patient Problems (1) Acute ischemic left MCA stroke Comment: -Permissive hypertension; may walk unless RLE weakness develops, then back to HOB flat -Neuro checks -Neurology consulted, appreciate recs -Asa/Plavix (Asa at 325), Atorvastatin 20 -Echo negative for PFO -MRI shows subacute nonhemorrhagic infarct of L basal ganglia -PT/OT ordered -PMRU referal placed (2) CAD (coronary artery disease) Comment: -s/p PCI -On 2/2 prevention: Asa, Statin, holding ALYSON (3) Diabetes Comment: -BS adequately controlled -Type 2, not on Metformin -Continue Sitagliptin and Glimeperide, holding canaglaflozin (4) Anxiety Comment: -Largely 2/2 to stroke diagnosis, situational, offer PRN atarax (5) Hypertension Comment: -Allowing permissive HTN -Hold home meds for now (6) Tobacco dependence Comment: -Offer NRT PRN (7) DVT prophylaxis Comment: -SQH (8) Full code status Status and Disposition: Neurology following, needs PT/OT, MRI prior to D/C.
--- NOTE | 2018-11-12 19:54 | CONS ---
NEUROLOGY CONSULT FOLLOWUP: DATE OF FOLLOWUP: 11/12/18 HOSPITALIST: DORIE Elizalde LOCATION: He is an inpatient in room 438. CHIEF COMPLAINT: Right hemiparesis. INTERVAL HISTORY: Since yesterday, Velasquez notes he has improved function in his right leg. He was able to ambulate with assistance to the bathroom. He still has no significant functional motor capability in his right upper extremity. He has been eating without swallowing difficulties. He notes no problem with his left side. MEDICATIONS: Medications are reviewed. He is on; 1. Aspirin 325 mg p.o. daily/ 2. Atorvastatin 20 mg p.o. daily/ 3. Plavix 75 mg p.o. daily. 4. Glimepiride 2 mg p.o. q.a.m. 5. Heparin subcutaneous 5000 units q.8 hours. 6. Nicotine inhaler. 7. Nicotine patch daily. 8. Hydroxyzine 10 mg p.o. q.6 hours p.r.n. anxiety. 9. Januvia 100 mg p.o. daily. PHYSICAL EXAM: On exam, he is thin, but well hydrated. Temperature is 98.0, blood pressure last recorded 152/75, heart rate in the 60s and regular, respiratory rate is 20, and oxygen saturation is 97% on room air. Neurological Exam: He has central pattern right facial weakness. Speech is mildly dysarthric, but intelligible. He has a flaccid right upper extremity. He can raise the right leg up off the bed and hold it. He has some ankle dorsiflexion strength in the right foot, but it is grade 4- at best. He is alert and oriented and a good historian. Language is fluent. DIAGNOSTIC STUDIES/LAB DATA: Includes an MRI of the brain, which I reviewed the images of. There is an acute left posterior limb internal capsule infarction. Official reading by the radiologist is subacute non-hemorrhagic infarct of the left basal ganglion. Other laboratory data from today is notable for normal CBC, point of care glucose today 131. Basic metabolic profile this morning notable for a glucose of 141 and otherwise unremarkable. IMPRESSION AND PLAN: Impression is that of a small-vessel left posterior limb internal capsule lacunar infarction. Unfortunately, he has regained significant right leg function. I recommend dual anti-platelet therapy for 30 days from onset and then switch to antiplatelet monotherapy with either aspirin or Plavix. He is currently on a statin and his blood pressure control is reasonable. I reviewed the results of the MRI findings with Mr. Whelan and his family. I suggested getting a physical medicine rehab involved for evaluation and determine disposition at this point. I can see him in followup as an outpatient in appropriately 3 to 4 weeks if he is discharged soon. [id number]/[facility] #: [id number] MTDD
[2018-11-13] MEDS: Heparin VIAL(*) 5000 UNITS/ML VIAL (FIVE THOUSAND) SUBCUT SCH (05:22)
[2018-11-13] MEDS: Aspirin TAB* 325 MG PO SCH (08:01)
[2018-11-13] MEDS: Clopidogrel TAB* 75 MG PO SCH (08:01)
[2018-11-13] MEDS: CMCS: Glimepiride (NF) 2 MG TAB PO SCH (08:01)
[2018-11-13] MEDS: CMCS: SitaGLIPtin (NF) 100 MG TAB PO SCH (08:01)
[2018-11-13] MEDS: Acetaminophen TAB* 325 MG PO PRN (08:01)
[2018-11-13 11:52] VITALS: BP 153/75
--- NOTE | 2018-11-14 03:31 | DS ---
CC: Dr. Guy Wheat * DISCHARGE SUMMARY: DATE OF ADMISSION: 11/10/18 DATE OF DISCHARGE: 11/13/18 PRIMARY CARE PROVIDER: Dr. Guy Wheat at [facility] in [place]. ATTENDING PHYSICIAN: Dr. Alejo Victor * (dictated by DORIE Elizalde). PRIMARY DIAGNOSIS: Cerebrovascular accident. SECONDARY DIAGNOSES: 1. Hypertension. 2. Coronary artery disease with stents in 1999. 3. Hyperlipidemia. 4. Diabetes mellitus type 2. 5. History of pancreatitis. 6. Bilateral cataracts. STUDIES WHILE IN THE HOSPITAL: 1. Brain CT, 11/09/18, impression: Small focus of low density involving the left lentiform nucleus extending to the gómez radiata concerning for acute left MCA infarct. No acute intracranial hemorrhage. 2. Head CTA, 11/09/18, impression: No hemodynamically significant stenosis or large vessel occlusion, 2 mm right MCA bifurcation aneurysm. 3. Transthoracic echocardiogram, 11/10/18, conclusion: Mild concentric left left ventricular hypertrophy is observed. The ejection fraction is 60% to 65%. Abnormal left ventricular diastolic filling is observed consistent with impaired relaxation. The bubble study is negative. Patent foramen ovale is not demonstrated with color Doppler and agitated contrast. The aortic valve leaflet are minimally thickened. There is a trace of mitral regurgitation. There is trace tricuspid regurgitation. 4. Brain MRI, 11/12/18, impression: Subacute nonhemorrhagic infarct of the left basal ganglia. DISCHARGE MEDICATIONS: Home Medications: 1. Ramipril 10 mg p.o. daily. 2. Aspirin 325 mg p.o. daily. 3. Sitagliptin phosphate 100 mg p.o. daily. 4. Glimepiride 2 mg p.o. q.a.m. 5. Simvastatin 40 mg p.o. at bedtime. 6. Canagliflozin 300 mg p.o. daily. [place] Medications: 1. Clopidogrel 75 mg p.o. daily. 2. Nicotine inhaler 10 mg q.2 hours p.r.n. 3. Nicotine patch 14 mg per 24 hours, 1 patch transdermally daily p.r.n. HISTORY OF PRESENT ILLNESS/HOSPITAL COURSE: Mr. Whelan is a 73-year-old man with a past medical history of lifetime heavy tobacco use, hypertension, coronary artery disease with stent placement in 1999. On 04/12/19, the patient states that he woke around 3:00 p.m., he noticed he could not push a button on his phone, he stood up and stated that his legs felt like spaghetti. This all continued for approximately 1 hour and then he began to develop slurred speech, for which he sought medical attention at a walk-in clinic and was then directed to [place] [facility]. At arrived at [place] at around 7:30 p.m. and was transferred to [facility], arriving around 8:30. Last known well was 3:00 p.m. Frankie vaqzuez was called in the ER and TPA was not administered due to duration since onset is outside of the window. NIH scale was 4 on presentation. He received a full workup in the emergency room and was admitted to the hospital. The patient was placed on aspirin and Plavix and neuro consultation was ordered. Laboratory data was obtained. MRI, RAFFAELE, PT/OT, and speech therapy were ordered. The patient was found to have dysarthria, right facial droop as well as right-sided hemiparesis. Throughout his stay, he slowly regained use of the right leg and was ambulating by the end of his stay. The right arm remained immobile by the end of his stay. His speech is slowly returning to normal by the time of discharge. He agreed to be placed in subacute rehab for further strengthening. At the time of discharge, the patient is a bit weepy and frustrated with what he believes is slow progress back to his baseline. It was discussed that he may or may not return to his baseline, but that he was progressing well and that PT would be an asset in terms of helping him to function and modify his activities. He denies chest pain, shortness of breath, cough, abdominal pain, nausea, vomiting, diarrhea, constipation, or pain in the lower extremities. Mr. Whelan is stable for discharge. PHYSICAL EXAMINATION: Vitals Sings: Temperature 97.5 oral, heart rate 65, respiratory rate 16, oxygen saturation 98% on room air, and blood pressure 153/ 75. DISCHARGE PLAN: Mr. Whelan will be discharged to [facility]. ACTIVITY: As tolerated. DIET: Heart-healthy. MEDICATIONS: As above. EDUCATION: 1. Follow up with primary care physician in 4 to 7 days. 2. Follow up with Dr. Mosher, Neurology, in 3 to 4 weeks. 3. Continue Plavix and aspirin for a total of 30 days and switch to mono therapy. Discussed this with Neurology at followup appointment. 4. Return to the ER or nearest hospital if he experiences any worsening of symptoms, shortness of breath, lightheadedness, dizziness, chest discomfort, high fevers, chills, night sweats, loss of consciousness, or any other worrisome sings or symptoms. This is a summarized report of a complex medical history and hospital stay. For further details, please see the entire medical record. TIME SPENT: Approximately 40 minutes was spent on this discharge; greater than half of that time was spent [id number] with the patient and his discussing discharge plans and instructions. DORIE STEWARD [id number]/[facility] #: [id number] NUPUR
== END 2018-11-13 12:30 | DRG 65 ==
LOC: ED 20:29 → MEDTELE 11-10 02:35
PROVIDERS: ADMIT Internal Medicine; ATTEND Internal Medicine
DX: I63.512 Cerebral infarction due to unspecified occlusion or stenosis of left middle cerebral artery (principal); G81.91 Hemiplegia, unspecified affecting right dominant side; I10 Essential (primary) hypertension; I25.10 Atherosclerotic heart disease of native coronary artery without angina pectoris; E78.5 Hyperlipidemia, unspecified; I08.1 Rheumatic disorders of both mitral and tricuspid valves; E11.36 Type 2 diabetes mellitus with diabetic cataract; F41.9 Anxiety disorder, unspecified; R29.707 NIHSS score 7; R29.810 Facial weakness; I49.1 Atrial premature depolarization; F17.210 Nicotine dependence, cigarettes, uncomplicated; R00.1 Bradycardia, unspecified; R47.1 Dysarthria and anarthria; Z79.82 Long term (current) use of aspirin; Z79.02 Long term (current) use of antithrombotics/antiplatelets; Z95.5 Presence of coronary angioplasty implant and graft; Z82.3 Family history of stroke; Z79.84 Long term (current) use of oral hypoglycemic drugs
CPT/HCPCS: 36415; 70450; 70496; 70498; 70551; 71045; 80048; 80053; 80061; 81003; 81015; 83036; 83605; 84484; 85025; 85610; 85730; 87086; 93005; 93306; 99285; A9270-GY; G8978-GP-CL; G8979-GP-CI; G8987-GO-CL; G8988-GO-CI; J1644; Q9967

== ENCOUNTER 2018-11-13 09:51 | Inpatient (IN) | payer MEDICARE ==
[2018-11-13] MEDS ORDERED: Magnesium Hydroxide LIQ* 30 ML UDC PO PRN (13:10)
[2018-11-13] MEDS ORDERED: Senna TAB PO PRN (13:10)
[2018-11-13] MEDS ORDERED: Dextrose 50% Syringe 50 ML* 25 GM/50 ML SYRINGE IV PUSH PRN (13:25)
[2018-11-13] MEDS: Heparin VIAL(*) 5000 UNITS/ML VIAL (FIVE THOUSAND) SUBCUT SCH ×2 (16:43→21:41)
[2018-11-13] MEDS: Insulin LISPRO* 1 UNITS UNIT SUBCUT SCH ×2 (16:46→21:42)
[2018-11-13] MEDS: Atorvastatin* 20 MG TAB PO SCH (17:02)
[2018-11-13] MEDS: Docusate CAP* 100 MG PO SCH ×2 (21:42→21:45)
[2018-11-13] MEDS: Acetaminophen TAB* 325 MG PO PRN (21:47)
--- NOTE | 2018-11-13 22:38 | HP ---
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 HISTORY OF PRESENT ILLNESS: Velasquez Whelan is a 73-year-old man. He is a diabetic and previously was a very heavy smoker, 4 packs a day, although he says he cutdown to about three-quarters of a pack a day prior to admission. He had coronary artery disease and had a stent placed in 1999. On 11/10/18, the patient woke up in his usual state of health. Around 3 o'clock in the afternoon , he was using his phone and was having trouble with his right hand operating the phone. He went to stand up and his legs felt weak. He initially was not sure what was the matter. He drove his to the Urgent Care Clinic at [facility]. When he arrived there, he was directed to the [facility] Emergency Room. The patient was evaluated and it was felt he was having a stroke. He was transferred to the [facility] Emergency Room. He arrived at the [facility] Emergency Room at 8:30 p.m. A code vazquez was called, but tPA was not administered as he was felt to be outside of the window. He did have a consultation done with Dr. Mosher. He had a CAT scan of his brain and his CAT scan seemed to show loss of vazquez-white matter demarcation of the left lentiform nucleus into the left internal capsule. He had a CT angiogram that did not show any intracranial or extracranial stenosis. It was felt that he had a subcortical left hemisphere infarction. He seemed to have pure motor hemiparesis, but he was worsening from the time he presented to [facility] to his arrival at [facility]. Plavix was added to aspirin. The patient did seem to be getting better with his right leg, although his right arm remained plegic. He had an MRI of his brain done on that showed a stroke in the left basal ganglia. Dr. Mosher recommended continuing him on both a full-strength aspirin and Plavix. It was recommended aspirin and Plavix for 30 days, then switching to monotherapy. The patient was felt to have physical therapy, occupational therapy, and speech therapy needs. He is now being admitted for inpatient rehab so that he that he might return to independent living. PAST MEDICAL HISTORY: Significant for the aforementioned diabetes, he has a history of heavy smoking as well. He has a history of hypertension, coronary artery disease, he has had pancreatitis in the past, and cataracts bilaterally. MEDICATIONS: Current medications include: 1. A full strength aspirin. 2. He is on Lipitor. 3. Plavix. 4. Glimepiride. 5. Januvia. 6. Heparin for DVT prophylaxis. ALLERGIES: The patient has no known drug allergies. SOCIAL HISTORY: As mentioned he was a three-quarter pack a day smoker, but formerly was a 4 pack a day smoker. He denies any heavy alcohol use. He is currently staying at his brother's house in [place]. It is a 2-story house , but he will stay on the first floor. 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 He is . He has 1 child living at [place], 2 other children who live out of the area. REVIEW OF SYSTEMS: The patient reports no current shortness of breath or chest pain. PHYSICAL EXAMINATION VITAL SIGNS: The patient's temperature was 97.3, blood pressure is 145/75, pulse is 66, respirations 16. HEENT: His extraocular movements were intact. Tongue is midline. NECK: Supple. LUNGS: Sounded clear to auscultation bilaterally. HEART: Heart sounds are regular. S1, S2 are audible. ABDOMEN: Soft and nontender. EXTREMITIES: His right upper extremity is flaccid. Right lower extremity has fairly normal tone. Peripheral pulses are intact. NEUROLOGIC: Sensation appeared to be intact. Muscle strength: In the right upper extremity, I did not detect any voluntary movement. In the right lower extremity, he was able to do a straight leg raise. Dorsiflexion and plantar flexion were approximately 4/5. FUNCTIONAL EXAM: He transfers with min assist. ASSESSMENT: Left basal ganglia infarct with right hemiparesis. PLAN: Integrate him into a comprehensive and therapeutic rehab program with the following goals: 1. Physical Therapy will work with the patient. They are going to work on functional transfer training, ambulation training with a walker. 2. Occupational Therapy will see the patient and work on his activities of daily living including toileting and toilet transfers. 3. Speech Therapy will see the patient. They are going to work on his dysarthria as well as evaluate any swallowing problems. 4. Heparin for DVT prophylaxis. 5. Continue aspirin and Plavix for 30 days for secondary stroke prevention. 6. Continue Lipitor. 7. Monitor his blood pressure. We may add his Altace back in. 8. For diabetes, we are going to do sliding scale insulin as well as his Januvia and his glimepiride. 9. For nicotine addiction, we will use a nicotine inhaler p.r.n. 10. Field Nurse will be closely involved to make sure that any services and equipment that the patient requires are in place prior to discharge. 11. Family training as appropriate. 12. Home with appropriate services. ESTIMATED LENGTH OF STAY: 10 to 14 days. [id number]/[facility] #: [id number] NUPUR
[2018-11-14] MEDS: Acetaminophen TAB* 325 MG PO PRN ×2 (04:10→19:01)
[2018-11-14] MEDS: Heparin VIAL(*) 5000 UNITS/ML VIAL (FIVE THOUSAND) SUBCUT SCH ×3 (05:36→21:53)
[2018-11-14 06:23] LABS: ABS Basophils 0 10^3/ul (0-0.2); ABS Eosinophils 0.1 10^3/ul (0-0.6); ABS Lymphocytes 1.5 10^3/ul (1.0-4.8); ABS Monocytes 0.9 10^3/ul (0-0.8); ABS Neutrophils 7.3 10^3/ul (1.5-7.7); ABS Nucleated RBC 0 10^3/ul; Eosinophil % 1.1 %; Hematocrit 44 % (36-46); Hemoglobin 14.7 g/dL (14.0-18.0); Lymphocyte % 15.2 %; Mean Corpuscular HGB Conc 33 g/dL (31-36); Mean Corpuscular Hemoglobin 30 pg (27-31); Mean Corpuscular Volume 90 fL (80-94); Mean Platelet Volume 8.9 fL (7.4-10.4); Nucleated Red Blood Cells % 0; Platelet Count 184 10^3/uL (150-450); Red Blood Count 4.96 10^6 /uL (4.18-5.48); Red Cell Distribution Width 15 % (10.5-15); White Blood Count 9.8 10^3/uL (3.5-10.8)
[2018-11-14 06:40] LABS: Albumin 3.8 g/dL (3.2-5.2); Albumin/Globulin Ratio 1.4 (1-3); BUN/Creatinine Ratio 24.2 (8-20); Calcium 9.1 mg/dL (8.6-10.3); EGFR African American 99.1 (>60); EGFR Non-African American 81.9 (>60); Globulin 2.7 g/dL (2-4); Potassium 3.9 mmol/L (3.5-5.0); Total Bilirubin 0.4 mg/dL (0.2-1.0); Total Protein 6.5 g/dL (6.4-8.9)
[2018-11-14] MEDS: CMCS:Glimepiride (NF) 2 MG TAB PO SCH (09:28)
[2018-11-14] MEDS: Docusate CAP* 100 MG PO SCH ×2 (09:29→21:14)
[2018-11-14] MEDS: Aspirin EC TAB* 325 MG PO SCH (09:29)
[2018-11-14] MEDS: CMCS:SitaGLIPtin (NF) 100 MG TAB PO SCH (09:29)
[2018-11-14] MEDS: Clopidogrel TAB* 75 MG PO SCH (09:29)
[2018-11-14] MEDS: Insulin LISPRO* 1 UNITS UNIT SUBCUT SCH ×4 (09:32→21:25)
[2018-11-14] MEDS: Atorvastatin* 20 MG TAB PO SCH (17:28)
--- NOTE | 2018-11-14 18:58 | PN ---
Progress Note Date of Service: 11/14/18 Note: DAVON MEDINA was visited. Therapy notes read and reviewed. His blood sugars are a little high. He was able to take some steps with physical therapy. Right arm has some non functional movement. Current Medications: Active Medications Generic Name Dose Route Start Last Admin Trade Name Freq PRN Reason Stop Dose Admin Acetaminophen 650 mg 11/13/18 13:10 11/14/18 04:10 Tylenol Tab* PO 650 mg Q6H PRN Administration FEVER/PAIN Aspirin 325 mg 11/14/18 09:00 11/14/18 09:29 Ecotrin Ec Tab* PO 325 mg DAILY NANO Administration Atorvastatin Calcium 20 mg 11/13/18 17:00 11/14/18 17:28 Lipitor* PO 20 mg 1700 NANO Administration Clopidogrel Bisulfate 75 mg 11/14/18 09:00 11/14/18 09:29 Plavix Tab* PO 75 mg DAILY NANO Administration Dextrose 12.5 gm 11/13/18 13:25 D50w Syringe 50 Ml* IV PUSH .FOR FS < 60 - SS PRN FS < 60 Docusate Sodium 100 mg 11/13/18 21:00 11/14/18 09:29 Colace Cap* PO Not Given BID NANO Glimepiride 2 mg 11/14/18 08:30 11/14/18 09:28 Glimepiride (Nf) PO 2 mg DAILY WITH MEAL NANO Administration Protocol Heparin Sodium (Porcine) 5,000 units 11/13/18 14:00 11/14/18 14:58 Heparin Vial(*) SUBCUT 5,000 units Q8HR NANO Administration Insulin Human Lispro 0 - 10 units 11/14/18 21:00 Humalog* SUBCUT ACHS NANO Protocol Magnesium Hydroxide 30 ml 11/13/18 13:10 Milk Of Magnesia Liq* PO Q6H PRN CONSTIPATION Senna 2 tab 11/13/18 13:10 Senokot Tab* PO BEDTIME PRN CONSTIPATION Sitagliptin Phosphate 100 mg 11/14/18 09:00 11/14/18 09:29 Januvia (Nf) PO 100 mg DAILY NANO Administration Vital Signs: Vital Signs Temp Pulse Resp BP Pulse Ox 98.0 F 55 16 136/66 99 11/14/18 14:54 11/14/18 14:54 11/14/18 14:54 11/14/18 14:54 11/14/18 14:54 Lab Results: Laboratory Results - last 24 hr 11/13/18 11/14/18 11/14/18 21:31 06:15 06:15 WBC 9.8 RBC 4.96 Hgb 14.7 Hct 44 MCV 90 MCH 30 MCHC 33 RDW 15 Plt Count 184 MPV 8.9 Neut % (Auto) 74.7 Lymph % (Auto) 15.2 [place] % (Auto) 8.7 Eos % (Auto) 1.1 Baso % (Auto) 0.3 Absolute Neuts (auto) 7.3 Absolute Lymphs (auto) 1.5 Absolute Monos (auto) 0.9 H Absolute Eos (auto) 0.1 Absolute Basos (auto) 0 Absolute Nucleated RBC 0 Nucleated RBC % 0 Sodium 140 Potassium 3.9 Chloride 113 H Carbon Dioxide 22 Anion Gap 5 BUN 22 Creatinine 0.91 Est GFR ( Amer) 99.1 Est GFR (Non-Af Amer) 81.9 BUN/Creatinine Ratio 24.2 H Glucose 130 H POC Glucose (mg/dL) 172 H Calcium 9.1 Total Bilirubin 0.40 AST 24 ALT 26 Alkaline Phosphatase 61 Total Protein 6.5 Albumin 3.8 Globulin 2.7 Albumin/Globulin Ratio 1.4 11/14/18 11/14/18 11/14/18 07:38 12:19 16:00 WBC RBC Hgb Hct MCV MCH MCHC RDW Plt Count MPV Neut % (Auto) Lymph % (Auto) [place] % (Auto) Eos % (Auto) Baso % (Auto) Absolute Neuts (auto) Absolute Lymphs (auto) Absolute Monos (auto) Absolute Eos (auto) Absolute Basos (auto) Absolute Nucleated RBC Nucleated RBC % Sodium Potassium Chloride Carbon Dioxide Anion Gap BUN Creatinine Est GFR ( Amer) Est GFR (Non-Af Amer) BUN/Creatinine Ratio Glucose POC Glucose (mg/dL) 141 H 143 H 214 H Calcium Total Bilirubin AST ALT Alkaline Phosphatase Total Protein Albumin Globulin Albumin/Globulin Ratio Exam: HEENT: Right facial drrop LUNGS: Clear bilaterally HEART: Regular rhythm ABDOMEN: soft +BS EXTREMITIES: Flaccid RUE NEUROLOGIC: A&O. Dysarthria. RUE: No active movement for me tonight. RLE: 4/5. Left side normal. Normal sensation Assessment/Plan: 1. 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 DAPT with ASA/ Plavix for 30 days, then single agent. Lipitor 2. Diabetes: will increase SSI. Continue Januvia and glimepiride 3. Nicotine addiction: Nicotine inhaler PRN 4. DVT Prophylaxis: Heparin S/Q 5. Advance Directives: Full code 11/14/18 18:58 11/14/18 19:00
[2018-11-14] MEDS ORDERED: Acetaminophen TAB* 325 MG PO ONE (23:20)
[2018-11-15] MEDS: Heparin VIAL(*) 5000 UNITS/ML VIAL (FIVE THOUSAND) SUBCUT SCH ×3 (05:19→22:03)
[2018-11-15] MEDS: CMCS:Glimepiride (NF) 2 MG TAB PO SCH (09:29)
[2018-11-15] MEDS: Acetaminophen TAB* 325 MG PO PRN ×2 (09:30→22:37)
[2018-11-15] MEDS: Docusate CAP* 100 MG PO SCH ×2 (09:31→22:02)
[2018-11-15] MEDS: CMCS:SitaGLIPtin (NF) 100 MG TAB PO SCH (09:31)
[2018-11-15] MEDS: Clopidogrel TAB* 75 MG PO SCH (09:31)
[2018-11-15] MEDS: Aspirin EC TAB* 325 MG PO SCH (09:31)
[2018-11-15] MEDS: Insulin LISPRO* 1 UNITS UNIT SUBCUT SCH ×4 (10:12→22:03)
[2018-11-15] MEDS: Atorvastatin* 20 MG TAB PO SCH (18:23)
--- NOTE | 2018-11-15 21:29 | PN ---
Progress Note Date of Service: 11/15/18 Note: DAVON MEDINA was visited. Therapy notes read and reviewed. He is having some return in his right arm, some biceps tonight, trace triceps Current Medications: Active Medications Generic Name Dose Route Start Last Admin Trade Name Freq PRN Reason Stop Dose Admin Acetaminophen 650 mg 11/13/18 13:10 11/15/18 09:30 Tylenol Tab* PO 650 mg Q6H PRN Administration FEVER/PAIN Aspirin 325 mg 11/14/18 09:00 11/15/18 09:31 Ecotrin Ec Tab* PO 325 mg DAILY NANO Administration Atorvastatin Calcium 20 mg 11/13/18 17:00 11/15/18 18:23 Lipitor* PO 20 mg 1700 NANO Administration Clopidogrel Bisulfate 75 mg 11/14/18 09:00 11/15/18 09:31 Plavix Tab* PO 75 mg DAILY NANO Administration Dextrose 12.5 gm 11/13/18 13:25 D50w Syringe 50 Ml* IV PUSH .FOR FS < 60 - SS PRN FS < 60 Docusate Sodium 100 mg 11/13/18 21:00 11/15/18 09:31 Colace Cap* PO Not Given BID NANO Glimepiride 2 mg 11/14/18 08:30 11/15/18 09:29 Glimepiride (Nf) PO 2 mg DAILY WITH MEAL NANO Administration Protocol Heparin Sodium (Porcine) 5,000 units 11/13/18 14:00 11/15/18 14:13 Heparin Vial(*) SUBCUT 5,000 units Q8HR NANO Administration Insulin Human Lispro 0 - 10 units 11/14/18 21:00 11/15/18 18:26 Humalog* SUBCUT Not Given ACHS NANO Protocol Magnesium Hydroxide 30 ml 11/13/18 13:10 Milk Of Magnesia Liq* PO Q6H PRN CONSTIPATION Senna 2 tab 11/13/18 13:10 Senokot Tab* PO BEDTIME PRN CONSTIPATION Sitagliptin Phosphate 100 mg 11/14/18 09:00 11/15/18 09:31 Januvia (Nf) PO 100 mg DAILY NANO Administration Vital Signs: Vital Signs Temp Pulse Resp BP Pulse Ox 97.8 F 70 16 152/67 99 11/15/18 14:44 11/15/18 14:44 11/15/18 14:44 11/15/18 14:44 11/15/18 18:26 Lab Results: Laboratory Results - last 24 hr 11/15/18 11/15/18 11/15/18 07:49 11:48 17:34 POC Glucose (mg/dL) 147 H 109 H 165 H Exam: HEENT: Right facial drrop LUNGS: Clear bilaterally HEART: Regular rhythm ABDOMEN: soft +BS EXTREMITIES: pulses present NEUROLOGIC: A&O. Dysarthria. RUE: Trace triceps, 2/5 biceps. RLE: 4/5. Left side normal. Normal sensation Assessment/Plan: 1. 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 DAPT with ASA/ Plavix for 30 days, then single agent. Lipitor 2. Diabetes: increased SSI. Continue Januvia and glimepiride 3. Nicotine addiction: Nicotine inhaler PRN 4. DVT Prophylaxis: Heparin S/Q 5. Advance Directives: Full code 11/15/18 21:30
[2018-11-15] MEDS ORDERED: Nicotine Inhaler* 10 MG AMP INH PRN (21:31)
[2018-11-15] MEDS ORDERED: Mouth Piece, Nicotine* 1 EACH CARTRIDGE INH ONE (22:00)
[2018-11-16] MEDS: Acetaminophen TAB* 325 MG PO PRN ×3 (05:19→23:13)
[2018-11-16] MEDS: Heparin VIAL(*) 5000 UNITS/ML VIAL (FIVE THOUSAND) SUBCUT SCH ×3 (05:20→21:28)
[2018-11-16] MEDS: Insulin LISPRO* 1 UNITS UNIT SUBCUT SCH ×4 (08:46→21:26)
[2018-11-16] MEDS: CMCS:Glimepiride (NF) 2 MG TAB PO SCH (08:52)
[2018-11-16] MEDS: Aspirin EC TAB* 325 MG PO SCH (08:52)
[2018-11-16] MEDS: Clopidogrel TAB* 75 MG PO SCH (08:52)
[2018-11-16] MEDS: Docusate CAP* 100 MG PO SCH ×2 (08:52→21:30)
[2018-11-16] MEDS: CMCS:SitaGLIPtin (NF) 100 MG TAB PO SCH (08:52)
--- NOTE | 2018-11-16 12:39 | PMRUTEAM ---
PMRU: Team Meeting Current Status: Nursing: Current Status Skin Deviations [none] Rash Skin Deviation Description [ none none] Physical Therapy: Current Status Bed Mobility Assistance supervision Transfer Mobility Assistance contact guard to min A Transfer/Bed Mobility Large Base Quad Cane Recommended Devices Ambulation Assistance contact guard to min A Ambulation Assistive Devices Large Base Quad Cane Number of Feet Patient 38' x 2 Ambulated Stairs Assistance Not Tested Curb Not Tested Occupational Therapy: Current Status Upper Body Dressing min A Lower Body Dressing Min Assist Bathing Min Assist Toileting Min Assist Toilet Transfer Min Assist Shower Transfer Min Assist Eating Supervision, set up Rec Therapy: Current Status Summary of Assessment and Pt. was open to conversation - pleasant, tearful Clinical Impression at times. Pt. repeatedly apologized for his tearfulness, stating "I hate this. I'm not usually like this". Pt. expressed frustration with his lack of mobility and the effect it might have on his ability to ride his motorcycle. However, pt. expressed pride in the movement has already gotten back since having the stroke. Treatment Goals Pt. will engage in leisure while on the unit. Treatment Plan Provide recreation services. Speech: Current Status Assessment Patient is progressing as expected. Patient produced nearly symmetrical spontaneous smile, and volitionallyheld up the weak right side of his upper lip to briefly prolong the smile and control those muscles. Patient completed the 3-oz test of continuous drinking of thin water without delay or clinical s /s aspiration, adequately masticated cracker and turkey meat, and swallowed without delay or feeling food get stuck. Patient demonstrated functional swallow status for currently ordered regular texture diet and thin liquids; recommend continue as ordered. Speech Current Status Goal 1 Mild-moderate impairment Goals: Physical Therapy: Initial Goals Bed Mobility Assistance Independent Transfer Mobility Assistance Independent Transfer/Bed Mobility Large Base Quad Cane Recommended Devices Ambulation Independent Ambulation Recommended Devices Large Base Quad Cane Ambulation Distance 150 Stairs Assistance Independent Stair Recommended Devices One Rail Number of Stairs 12 Occupational Therapy: Initial Goals Goals to be Completed in (Days 7-10 ) Upper Body Bathing Routine Modified Independent with Lower Body Bathing Routine Modified Independent with Upper Body Dressing Routine Modified Independent with Lower Body Dressing Routine Modified Independent with Toilet Hygeine and Clothing Modified Independent with Management Routine Toilet Transfer Routine Modified Independent with Step-In Shower Transfer Modified Independent with Routine Tub Transfer Routine Modified Independent with Functional Transfers for ADL Modified Independent with Grooming Routine Modified Independent with Feeding Routine Modified Independent with Speech: Goals Speech Goal 1 Motor speech Speech Evaluation Status Goal Mild-moderate impairment 1 Speech Current Status Goal 1 Mild-moderate impairment Goal 1 Comments LTG: The patient will independently speak with 100 % intelligibility and symmetrical facial expression. Status: Goal established. ST) The patient will use compensatory strategies to increase speech intelligibility to 100% in spontaneous conversational speech, given minimal cueing. Status: Goal established. 2) Pt will use compensatory articulation strategies to increase speech intelligibility to 95% in structured speech activities, given moderate cueing. Status: Goal established. 3) Pt will complete orofacial exercises to increase right side lip retraction and elevation to 80% of unaffected side, given moderate cues. Status: Progressing as expected. [employer] probed patient's ability to isolate and contract labial and facial muscles, and provided photos and instruction for 9 lateral muscles on each side. Patient demonstrated normal strong side lip retraction, lip nostril elevation, and absent volitional weak side lip retraction, lip and nostril elevation. However, patient produced nearly symmtrical retraction and elevation when he smiled spontaneously. [employer] instructed patient to feel for a "real" smile, then attempt to voluntarily squeeze the affected right side to prolong the expression. Patient demonstrated ability briefly. Care Plan: Care Plan ADL's - Improve/Maintain Start: 11/13/18 15:33 Freq: DAILY Status: Active Target: Protocol: Activity Type Activity Date Activity User E-Sign Co-Sign Detail Recorded Client Recorded Date Recorded By Document 11/15/18 11:21 [id number] 11/15/18 11:21 [id number] 11/15/18 11:21 PMRU Outcome: ADL's/ADL Transfers Orders/Interventions Occupational Therapy Evaluation & Treatment Communication Tool in Patient Room Device Yes Address Deficits Secondary To: CVA Patient to receive OT 5x/wk for 60-120 Therex min/day Self Care Management Group Therapy Neuromuscular ReEducation UE/LE ADL's with Assist Yes: Jo ADL Transfers with Assist Yes: Jo Toileting: Transfers,Clothing Management Yes: Jo ,Hygeine w/Assist Light Kitchen/Laundry w/Assist No Progression Toward Outcome/Goals Progressing Outcome/Goals Met Pt participated well in treatment session, increased independence with UE and LE dressing this session with cues for hemidressing techniques. Communication-Improve/Maintain Start: 11/13/18 14:04 Freq: DAILY Status: Active Target: Protocol: Activity Type Activity Date Activity User E-Sign Co-Sign Detail Recorded Client Recorded Date Recorded By Document 11/16/18 10:36 [id number] [id number] 11/16/18 10:39 [id number] 11/16/18 10:36 PMRU Outcome: Communication/Cognitive Status Other Outcomes/Goals Motor Speech: LTG: The patient will independently speak with 100% intelligibility and symmetrical facial expression. Status: Goal established. ST) The patient will use compensatory strategies to increase speech intelligibility to 100% in spontaneous conversational speech, given minimal cueing. Status: Goal established. 2) Pt will use compensatory articulation strategies to increase speech intelligibility to 95% in structured speech activities, given moderate cueing. Status: Goal established. 3) Pt will complete orofacial exercises to increase right side lip retraction and elevation to 80 % of unaffected side, given moderate cues. Status: Progressing as expected. [employer] probed patient's ability to isolate and contract labial and facial muscles, and provided photos and instruction for 9 lateral muscles on each side. Patient demonstrated normal strong side lip retraction, lip nostril elevation, and absent volitional weak side lip retraction, lip and nostril elevation. However, patient produced nearly symmtrical retraction and elevation when he smiled spontaneously. [employer] instructed patient to feel for a "real" smile, then attempt to voluntarily squeeze the affected right side to prolong the expression . Patient demonstrated ability briefly . Progression Toward Outcomes/Goals Progressing Coping/Psych-Improve/Maintain Start: 11/13/18 14:04 Freq: QSHIFT Status: Active Target: Protocol: Activity Type Activity Date Activity User E-Sign Co-Sign Detail Recorded Client Recorded Date Recorded By Document 11/16/18 10:36 [id number] [id number] 11/16/18 10:39 [id number] 11/16/18 10:36 PMRU Outcome: Coping/Psychosocial Coping Outcome/Goals Verbalization of Acceptance of Rehab Admit Verbalization of Sense of Control Over Health Status Willingness to Participate in Treatment Plan and Basic Needs Psychosocial Outcome/Goals Maintain/ Improve Emotional Health Progression Toward Outcome/Goals - Progressing Coping Progression Toward Outcome/Goals - Progressing Psychosocial DVT Prophylaxis- Improve/Maintain Start: 11/13/18 14:04 Freq: QSHIFT Status: Active Target: Protocol: Activity Type Activity Date Activity User E-Sign Co-Sign Detail Recorded Client Recorded Date Recorded By Document 11/16/18 10:36 [id number] [id number] 11/16/18 10:39 [id number] 11/16/18 10:36 PMRU Outcome: DVT Prophylaxis Outcome/Goals Remains Free of DVT Free of complications from current DVT Complies with DVT Prophylaxis /Treatment TEDS Stockings on Every AM, Off at HS Progression Toward Outcome/Goals Progressing Discharge Planning - Improve/Maintain Start: 11/13/18 14:04 Freq: DAILY Status: Active Target: Protocol: Activity Type Activity Date Activity User E-Sign Co-Sign Detail Recorded Client Recorded Date Recorded By Document 11/16/18 02:16 [id number] [id number] 11/16/18 02:16 [id number] 11/16/18 02:16 PMRU Outcome: Discharge Planning Update Patient Family No Outcome/Goals Demonstrates Understanding of Discharge Plan Progression Toward Outcome/Goals Progressing Education-Improve/Maintain Start: 11/13/18 14:04 Freq: QSHIFT Status: Active Target: Protocol: Activity Type Activity Date Activity User E-Sign Co-Sign Detail Recorded Client Recorded Date Recorded By Document 11/16/18 10:36 [id number] [email or web address] 11/16/18 10:39 [id number] 11/16/18 10:36 PMRU Outcome: Education Outcome/Goals Encourage Questions Progression Toward Outcome/Goals Progressing Medication Administration Start: 11/13/18 14:04 Freq: QSHIFT Status: Active Target: Protocol: Activity Type Activity Date Activity User E-Sign Co-Sign Detail Recorded Client Recorded Date Recorded By Document 11/16/18 10:36 [id number] [id number] 11/16/18 10:39 [id number] 11/16/18 10:36 PMRU Outcome: Medication Administration Assess Patient Knowledge/Teach Med Yes Education for all Meds Outcome/Goals Patient Independent with Medication Administration at Home Family/ Caregiver Administer Medications at Home Progression Towards Outcome/Goals Progressing Is Patient Going Home on Lovenox? No Metabolic Status- Improve/Maintain Start: 11/13/18 14:04 Freq: QSHIFT Status: Active Target: Protocol: Activity Type Activity Date Activity User E-Sign Co-Sign Detail Recorded Client Recorded Date Recorded By Document 11/16/18 10:36 [id number] 11/16/18 10:39 [id number] 11/16/18 10:36 PMRU Outcome: Metabolic Status Have Fingersticks Been Ordered Yes Fingerstick Order Frequency AC & HS Outcome/Goals Maintain/ Improve Metabolic Status Demonstrate Knowledge of Prevention/ Treatment of Metabolic Imbalances Progression Toward Outcome/Goals Progressing Outcome/Goals Met Comment fs 150 after beginning breakfast. patient declined 1 unit of insulin. Mobility- Improve/Maintain Start: 11/13/18 19:10 Freq: DAILY Status: Active Target: Protocol: Activity Type Activity Date Activity User E-Sign Co-Sign Detail Recorded Client Recorded Date Recorded By Document 11/13/18 19:10 [id number] [email or web address] 11/13/18 19:11 [id number] 11/13/18 19:10 PMRU Outcome: Mobility Physical Therapy Evaluation and Yes Treatment Activity OOB with Assistance Yes WBAT Yes Device Yes Assistance Yes Patient to be seen 5x/wk for 60-120 min/ Therex day for: Mobility Training Gait Training Balance Outcome/Goals Maintain/ Achieve Baseline Mobility Status Improve Mobility Status Demonstrates Proper Use of Assistive Devices Free from Complications of Immobility Bed Mobility Yes: independent Transfers Yes: independent with quad cane Gait x ft Yes: independnet with quad cane 150' Up/Down Stairs Yes: independent up down 12 stairs with 1 rail Neurological- Improve/Maintain Start: 11/13/18 14:04 Freq: QSHIFT Status: Active Target: Protocol: Activity Type Activity Date Activity User E-Sign Co-Sign Detail Recorded Client Recorded Date Recorded By Document 11/16/18 10:36 [id number] [id number] 11/16/18 10:39 [id number] 11/16/18 10:36 PMRU Outcome: Neurological Weakness/Aphasia Weakness Right Side Weakness/Aphasia Comment slurrred speech Outcome/Goals Maintain/ Achieve Baseline Neurological Status Prevent Avoidable Neurological Decline Demonstrate Knowledge of Prevention/Tx of Neuro Disorders/ Complication Progression Toward Outcome/Goals Progressing Safety- Improve/Maintain Start: 11/13/18 14:06 Freq: QSHIFT Status: Active Target: Protocol: Activity Type Activity Date Activity User E-Sign Co-Sign Detail Recorded Client Recorded Date Recorded By Document 11/16/18 10:36 [id number] [id number] 11/16/18 10:39 [id number] 11/16/18 10:36 PMRU Outcome: Safety Outcome/Goals Remain Free of Injury or Harm Cooperates with Safety Measures for Least Restrictive Environment Progression Toward Outcome/Goals Progressing Outcome/Goals Met Comment BA armed while in bed, PA while in chair Skin- Improve/Maintain Start: 11/13/18 14:04 Freq: QSHIFT Status: Active Target: Protocol: Activity Type Activity Date Activity User E-Sign Co-Sign Detail Recorded Client Recorded Date Recorded By Document 11/16/18 10:36 [id number] 11/16/18 10:39 [id number] 11/16/18 10:36 PMRU Outcome: Skin Skin Risk Level Low Dressing Change Comments pillows Outcome/Goals Maintain/ Improve Skin Intergrity Progression Toward Outcome/Goals Progressing Medicine Note: Length of Stay: [11 more days] Anticipated Discharge Destination: brother's home with Tentative Discharge Date: [11/27/18] Discharged to: [brother's home with ]
--- NOTE | 2018-11-16 12:40 | PMRUTEAM ---
PMRU: Team Meeting Current Status: Nursing: Current Status Skin Deviations [none] Rash Skin Deviation Description [ none none] Physical Therapy: Current Status Bed Mobility Assistance Not Tested Transfer Mobility Assistance Not Tested Transfer/Bed Mobility Large Base Quad Cane Recommended Devices Ambulation Assistance Not Tested Ambulation Assistive Devices Large Base Quad Cane Number of Feet Patient 38' x 2 Ambulated Stairs Assistance Not Tested Curb Not Tested Occupational Therapy: Current Status Upper Body Dressing Supervision Lower Body Dressing Min Assist,2 Person Assist Bathing Min Assist,2 Person Assist Toileting Mod Assist,2 Person Assist Toilet Transfer Min Assist,2 Person Assist Shower Transfer Min Assist,2 Person Assist Eating Supervision Rec Therapy: Current Status Summary of Assessment and Pt. was open to conversation - pleasant, tearful Clinical Impression at times. Pt. repeatedly apologized for his tearfulness, stating "I hate this. I'm not usually like this". Pt. expressed frustration with his lack of mobility and the effect it might have on his ability to ride his motorcycle. However, pt. expressed pride in the movement has already gotten back since having the stroke. Treatment Goals Pt. will engage in leisure while on the unit. Treatment Plan Provide recreation services. Speech: Current Status Assessment Patient is progressing as expected. Patient produced nearly symmetrical spontaneous smile, and volitionallyheld up the weak right side of his upper lip to briefly prolong the smile and control those muscles. Patient completed the 3-oz test of continuous drinking of thin water without delay or clinical s /s aspiration, adequately masticated cracker and turkey meat, and swallowed without delay or feeling food get stuck. Patient demonstrated functional swallow status for currently ordered regular texture diet and thin liquids; recommend continue as ordered. Speech Current Status Goal 1 Mild-moderate impairment Goals: Physical Therapy: Initial Goals Bed Mobility Assistance Independent Transfer Mobility Assistance Independent Transfer/Bed Mobility Large Base Quad Cane Recommended Devices Ambulation Independent Ambulation Recommended Devices Large Base Quad Cane Ambulation Distance 150 Stairs Assistance Independent Stair Recommended Devices One Rail Number of Stairs 12 Physical Therapy: Updated Goals Transfer/Bed Mobility Large Base Quad Cane Recommended Devices Occupational Therapy: Initial Goals Goals to be Completed in (Days 7-10 ) Upper Body Bathing Routine Modified Independent with Lower Body Bathing Routine Modified Independent with Upper Body Dressing Routine Modified Independent with Lower Body Dressing Routine Modified Independent with Toilet Hygeine and Clothing Modified Independent with Management Routine Toilet Transfer Routine Modified Independent with Step-In Shower Transfer Modified Independent with Routine Tub Transfer Routine Modified Independent with Functional Transfers for ADL Modified Independent with Grooming Routine Modified Independent with Feeding Routine Modified Independent with Speech: Goals Speech Goal 1 Motor speech Speech Evaluation Status Goal Mild-moderate impairment 1 Speech Current Status Goal 1 Mild-moderate impairment Goal 1 Comments LTG: The patient will independently speak with 100 % intelligibility and symmetrical facial expression. Status: Goal established. ST) The patient will use compensatory strategies to increase speech intelligibility to 100% in spontaneous conversational speech, given minimal cueing. Status: Goal established. 2) Pt will use compensatory articulation strategies to increase speech intelligibility to 95% in structured speech activities, given moderate cueing. Status: Goal established. 3) Pt will complete orofacial exercises to increase right side lip retraction and elevation to 80% of unaffected side, given moderate cues. Status: Progressing as expected. MAKING DEPARTMENT PREPARER probed patient's ability to isolate and contract labial and facial muscles, and provided photos and instruction for 9 lateral muscles on each side. Patient demonstrated normal strong side lip retraction, lip nostril elevation, and absent volitional weak side lip retraction, lip and nostril elevation. However, patient produced nearly symmtrical retraction and elevation when he smiled spontaneously. MAKING DEPARTMENT PREPARER instructed patient to feel for a "real" smile, then attempt to voluntarily squeeze the affected right side to prolong the expression. Patient demonstrated ability briefly. Care Plan: Care Plan ADL's - Improve/Maintain Start: 11/13/18 15:33 Freq: DAILY Status: Active Target: Protocol: Activity Type Activity Date Activity User E-Sign Co-Sign Detail Recorded Client Recorded Date Recorded By Document 11/15/18 11:21 [id number] 11/15/18 11:21 [id number] 11/15/18 11:21 PMRU Outcome: ADL's/ADL Transfers Orders/Interventions Occupational Therapy Evaluation & Treatment Communication Tool in Patient Room Device Yes Address Deficits Secondary To: CVA Patient to receive OT 5x/wk for 60-120 Therex min/day Self Care Management Group Therapy Neuromuscular ReEducation UE/LE ADL's with Assist Yes: Jo ADL Transfers with Assist Yes: Jo Toileting: Transfers,Clothing Management Yes: Jo ,Hygeine w/Assist Light Kitchen/Laundry w/Assist No Progression Toward Outcome/Goals Progressing Outcome/Goals Met Pt participated well in treatment session, increased independence with UE and LE dressing this session with cues for hemidressing techniques. Communication-Improve/Maintain Start: 11/13/18 14:04 Freq: DAILY Status: Active Target: Protocol: Activity Type Activity Date Activity User E-Sign Co-Sign Detail Recorded Client Recorded Date Recorded By Document 11/16/18 10:36 [id number] [id number] 11/16/18 10:39 [id number] 11/16/18 10:36 PMRU Outcome: Communication/Cognitive Status Other Outcomes/Goals Motor Speech: LTG: The patient will independently speak with 100% intelligibility and symmetrical facial expression. Status: Goal established. ST) The patient will use compensatory strategies to increase speech intelligibility to 100% in spontaneous conversational speech, given minimal cueing. Status: Goal established. 2) Pt will use compensatory articulation strategies to increase speech intelligibility to 95% in structured speech activities, given moderate cueing. Status: Goal established. 3) Pt will complete orofacial exercises to increase right side lip retraction and elevation to 80 % of unaffected side, given moderate cues. Status: Progressing as expected. MAKING DEPARTMENT PREPARER probed patient's ability to isolate and contract labial and facial muscles, and provided photos and instruction for 9 lateral muscles on each side. Patient demonstrated normal strong side lip retraction, lip nostril elevation, and absent volitional weak side lip retraction, lip and nostril elevation. However, patient produced nearly symmtrical retraction and elevation when he smiled spontaneously. MAKING DEPARTMENT PREPARER instructed patient to feel for a "real" smile, then attempt to voluntarily squeeze the affected right side to prolong the expression . Patient demonstrated ability briefly . Progression Toward Outcomes/Goals Progressing Coping/Psych-Improve/Maintain Start: 11/13/18 14:04 Freq: QSHIFT Status: Active Target: Protocol: Activity Type Activity Date Activity User E-Sign Co-Sign Detail Recorded Client Recorded Date Recorded By Document 11/16/18 10:36 [id number] 11/16/18 10:39 [id number] 11/16/18 10:36 PMRU Outcome: Coping/Psychosocial Coping Outcome/Goals Verbalization of Acceptance of Rehab Admit Verbalization of Sense of Control Over Health Status Willingness to Participate in Treatment Plan and Basic Needs Psychosocial Outcome/Goals Maintain/ Improve Emotional Health Progression Toward Outcome/Goals - Progressing Coping Progression Toward Outcome/Goals - Progressing Psychosocial DVT Prophylaxis- Improve/Maintain Start: 11/13/18 14:04 Freq: QSHIFT Status: Active Target: Protocol: Activity Type Activity Date Activity User E-Sign Co-Sign Detail Recorded Client Recorded Date Recorded By Document 11/16/18 10:36 [id number] [email or web address] 11/16/18 10:39 [id number] 11/16/18 10:36 PMRU Outcome: DVT Prophylaxis Outcome/Goals Remains Free of DVT Free of complications from current DVT Complies with DVT Prophylaxis /Treatment TEDS Stockings on Every AM, Off at HS Progression Toward Outcome/Goals Progressing Discharge Planning - Improve/Maintain Start: 11/13/18 14:04 Freq: DAILY Status: Active Target: Protocol: Activity Type Activity Date Activity User E-Sign Co-Sign Detail Recorded Client Recorded Date Recorded By Document 11/16/18 02:16 [id number] [email or web address] 11/16/18 02:16 [id number] 11/16/18 02:16 PMRU Outcome: Discharge Planning Update Patient Family No Outcome/Goals Demonstrates Understanding of Discharge Plan Progression Toward Outcome/Goals Progressing Education-Improve/Maintain Start: 11/13/18 14:04 Freq: QSHIFT Status: Active Target: Protocol: Activity Type Activity Date Activity User E-Sign Co-Sign Detail Recorded Client Recorded Date Recorded By Document 11/16/18 10:36 [id number] 11/16/18 10:39 [id number] 11/16/18 10:36 PMRU Outcome: Education Outcome/Goals Encourage Questions Progression Toward Outcome/Goals Progressing Medication Administration Start: 11/13/18 14:04 Freq: QSHIFT Status: Active Target: Protocol: Activity Type Activity Date Activity User E-Sign Co-Sign Detail Recorded Client Recorded Date Recorded By Document 11/16/18 10:36 [id number] 11/16/18 10:39 [id number] 11/16/18 10:36 PMRU Outcome: Medication Administration Assess Patient Knowledge/Teach Med Yes Education for all Meds Outcome/Goals Patient Independent with Medication Administration at Home Family/ Caregiver Administer Medications at Home Progression Towards Outcome/Goals Progressing Is Patient Going Home on Lovenox? No Metabolic Status- Improve/Maintain Start: 11/13/18 14:04 Freq: QSHIFT Status: Active Target: Protocol: Activity Type Activity Date Activity User E-Sign Co-Sign Detail Recorded Client Recorded Date Recorded By Document 11/16/18 10:36 [id number] 11/16/18 10:39 [id number] 11/16/18 10:36 PMRU Outcome: Metabolic Status Have Fingersticks Been Ordered Yes Fingerstick Order Frequency AC & HS Outcome/Goals Maintain/ Improve Metabolic Status Demonstrate Knowledge of Prevention/ Treatment of Metabolic Imbalances Progression Toward Outcome/Goals Progressing Outcome/Goals Met Comment fs 150 after beginning breakfast. patient declined 1 unit of insulin. Mobility- Improve/Maintain Start: 11/13/18 19:10 Freq: DAILY Status: Active Target: Protocol: Activity Type Activity Date Activity User E-Sign Co-Sign Detail Recorded Client Recorded Date Recorded By Document 11/13/18 19:10 [id number] 11/13/18 19:11 [id number] 11/13/18 19:10 PMRU Outcome: Mobility Physical Therapy Evaluation and Yes Treatment Activity OOB with Assistance Yes WBAT Yes Device Yes Assistance Yes Patient to be seen 5x/wk for 60-120 min/ Therex day for: Mobility Training Gait Training Balance Outcome/Goals Maintain/ Achieve Baseline Mobility Status Improve Mobility Status Demonstrates Proper Use of Assistive Devices Free from Complications of Immobility Bed Mobility Yes: independent Transfers Yes: independent with quad cane Gait x ft Yes: independnet with quad cane 150' Up/Down Stairs Yes: independent up down 12 stairs with 1 rail Neurological- Improve/Maintain Start: 11/13/18 14:04 Freq: QSHIFT Status: Active Target: Protocol: Activity Type Activity Date Activity User E-Sign Co-Sign Detail Recorded Client Recorded Date Recorded By Document 11/16/18 10:36 [id number] 11/16/18 10:39 [id number] 11/16/18 10:36 PMRU Outcome: Neurological Weakness/Aphasia Weakness Right Side Weakness/Aphasia Comment slurrred speech Outcome/Goals Maintain/ Achieve Baseline Neurological Status Prevent Avoidable Neurological Decline Demonstrate Knowledge of Prevention/Tx of Neuro Disorders/ Complication Progression Toward Outcome/Goals Progressing Safety- Improve/Maintain Start: 11/13/18 14:06 Freq: QSHIFT Status: Active Target: Protocol: Activity Type Activity Date Activity User E-Sign Co-Sign Detail Recorded Client Recorded Date Recorded By Document 11/16/18 10:36 [id number] 11/16/18 10:39 [id number] 11/16/18 10:36 PMRU Outcome: Safety Outcome/Goals Remain Free of Injury or Harm Cooperates with Safety Measures for Least Restrictive Environment Progression Toward Outcome/Goals Progressing Outcome/Goals Met Comment BA armed while in bed, PA while in chair Skin- Improve/Maintain Start: 11/13/18 14:04 Freq: QSHIFT Status: Active Target: Protocol: Activity Type Activity Date Activity User E-Sign Co-Sign Detail Recorded Client Recorded Date Recorded By Document 11/16/18 10:36 [id number] 11/16/18 10:39 [id number] 11/16/18 10:36 PMRU Outcome: Skin Skin Risk Level Low Dressing Change Comments pillows Outcome/Goals Maintain/ Improve Skin Intergrity Progression Toward Outcome/Goals Progressing Medicine Note: Length of Stay: [] Anticipated Discharge Destination: Tentative Discharge Date: [] Discharged to: []
--- NOTE | 2018-11-16 13:51 | PN ---
Progress Note Date of Service: 11/16/18 Note: DAVON MEDINA was visited. Nursing and therapy notes read and reviewed. No chest pain, shortness of breath or abdominal pain. No new concerns. Current Medications: Active Medications Generic Name Dose Route Start Last Admin Trade Name Freq PRN Reason Stop Dose Admin Acetaminophen 650 mg 11/13/18 13:10 11/16/18 13:14 Tylenol Tab* PO 650 mg Q6H PRN Administration FEVER/PAIN Aspirin 325 mg 11/14/18 09:00 11/16/18 08:52 Ecotrin Ec Tab* PO 325 mg DAILY NANO Administration Atorvastatin Calcium 20 mg 11/13/18 17:00 11/15/18 18:23 Lipitor* PO 20 mg 1700 NANO Administration Clopidogrel Bisulfate 75 mg 11/14/18 09:00 11/16/18 08:52 Plavix Tab* PO 75 mg DAILY NANO Administration Dextrose 12.5 gm 11/13/18 13:25 D50w Syringe 50 Ml* IV PUSH .FOR FS < 60 - SS PRN FS < 60 Docusate Sodium 100 mg 11/13/18 21:00 11/16/18 08:52 Colace Cap* PO 100 mg BID NANO Administration Glimepiride 2 mg 11/14/18 08:30 11/16/18 08:52 Glimepiride (Nf) PO 2 mg DAILY WITH MEAL NANO Administration Protocol Heparin Sodium (Porcine) 5,000 units 11/13/18 14:00 11/16/18 05:20 Heparin Vial(*) SUBCUT 5,000 units Q8HR NANO Administration Insulin Human Lispro 0 - 10 units 11/14/18 21:00 11/16/18 11:40 Humalog* SUBCUT Not Given ACHS [facility] Protocol Magnesium Hydroxide 30 ml 11/13/18 13:10 Milk Of Magnesia Liq* PO Q6H PRN CONSTIPATION Nicotine 10 mg 11/15/18 21:31 Nicotine Inhaler* INH Q2H PRN CRAVING Senna 2 tab 11/13/18 13:10 Senokot Tab* PO BEDTIME PRN CONSTIPATION Sitagliptin Phosphate 100 mg 11/14/18 09:00 11/16/18 08:52 Januvia (Nf) PO 100 mg DAILY NANO Administration Vital Signs: Vital Signs Temp Pulse Resp BP Pulse Ox 97.7 F 55 16 136/64 100 11/16/18 05:21 11/16/18 05:21 11/16/18 05:21 11/16/18 05:21 11/16/18 05:21 Lab Results: Laboratory Results - last 24 hr 11/15/18 11/15/18 11/16/18 17:34 21:25 07:43 POC Glucose (mg/dL) 165 H 178 H 150 H 11/16/18 11:39 POC Glucose (mg/dL) 108 H Exam: GEN: no acute distress. alert and appropriate. LUNGS: Clear to auscultation bilaterally HEART: Regular rate and rhythm ABDOMEN: soft, + bowel sounds, non-tender, non-distended EXTREMITIES: no edema. NEUROLOGIC: Right fascial droop. Dysarthria. RUE: Trace triceps, 2/5 biceps. RLE : 4/5. Left motor 5/5 UE/LE. Normal sensation Assessment/Plan: 1. 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 DAPT with ASA/ Plavix for 30 days, then single agent. Lipitor 2. Diabetes: SSI. Continue Januvia and glimepiride 3. Nicotine addiction: Nicotine inhaler PRN 4. DVT Prophylaxis: Heparin S/Q 5. Advance Directives: Full code 11/16/18 13:50
[2018-11-16] MEDS: Atorvastatin* 20 MG TAB PO SCH (16:57)
[2018-11-17] MEDS: Acetaminophen TAB* 325 MG PO PRN ×2 (06:33→21:56)
[2018-11-17] MEDS: Heparin VIAL(*) 5000 UNITS/ML VIAL (FIVE THOUSAND) SUBCUT SCH ×3 (06:34→21:55)
[2018-11-17] MEDS: Insulin LISPRO* 1 UNITS UNIT SUBCUT SCH ×4 (08:46→21:55)
[2018-11-17] MEDS: CMCS:Glimepiride (NF) 2 MG TAB PO SCH (08:48)
[2018-11-17] MEDS: Clopidogrel TAB* 75 MG PO SCH (08:48)
[2018-11-17] MEDS: Aspirin EC TAB* 325 MG PO SCH (08:48)
[2018-11-17] MEDS: CMCS:SitaGLIPtin (NF) 100 MG TAB PO SCH (08:48)
[2018-11-17] MEDS: Docusate CAP* 100 MG PO SCH (08:49)
[2018-11-17] MEDS ORDERED: Docusate CAP* 100 MG PO PRN (09:48)
--- NOTE | 2018-11-17 10:30 | PN ---
Progress Note Date of Service: 11/17/18 Note: DAVON MEDINA was visited. Nursing and therapy notes read and reviewed. No chest pain, shortness of breath or abdominal pain. Would like all bowel meds prn as soft stools are too messy. Current Medications: Active Medications Generic Name Dose Route Start Last Admin Trade Name Freq PRN Reason Stop Dose Admin Acetaminophen 650 mg 11/13/18 13:10 11/17/18 06:33 Tylenol Tab* PO 650 mg Q6H PRN Administration FEVER/PAIN Aspirin 325 mg 11/14/18 09:00 11/17/18 08:48 Ecotrin Ec Tab* PO 325 mg DAILY NANO Administration Atorvastatin Calcium 20 mg 11/13/18 17:00 11/16/18 16:57 Lipitor* PO 20 mg 1700 NANO Administration Clopidogrel Bisulfate 75 mg 11/14/18 09:00 11/17/18 08:48 Plavix Tab* PO 75 mg DAILY NANO Administration Dextrose 12.5 gm 11/13/18 13:25 D50w Syringe 50 Ml* IV PUSH .FOR FS < 60 - SS PRN FS < 60 Docusate Sodium 100 mg 11/17/18 09:48 Colace Cap* PO BID PRN CONSTIPATION Glimepiride 2 mg 11/14/18 08:30 11/17/18 08:48 Glimepiride (Nf) PO 2 mg DAILY WITH MEAL NANO Administration Protocol Heparin Sodium (Porcine) 5,000 units 11/13/18 14:00 11/17/18 06:34 Heparin Vial(*) SUBCUT 5,000 units Q8HR NANO Administration Insulin Human Lispro 0 - 10 units 11/14/18 21:00 11/17/18 08:46 Humalog* SUBCUT 2 units ACHS NANO Administration Protocol Magnesium Hydroxide 30 ml 11/13/18 13:10 Milk Of Magnesia Liq* PO Q6H PRN CONSTIPATION Nicotine 10 mg 11/15/18 21:31 Nicotine Inhaler* INH Q2H PRN CRAVING Senna 2 tab 11/13/18 13:10 Senokot Tab* PO BEDTIME PRN CONSTIPATION Sitagliptin Phosphate 100 mg 11/14/18 09:00 11/17/18 08:48 Januvia (Nf) PO 100 mg DAILY NANO Administration Vital Signs: Vital Signs Temp Pulse Resp BP Pulse Ox 98.4 F 70 18 123/62 94 11/17/18 06:44 11/17/18 06:44 11/17/18 06:44 11/17/18 06:44 11/17/18 06:44 Lab Results: Laboratory Results - last 24 hr 11/16/18 11/16/18 11/16/18 11:39 16:57 20:50 POC Glucose (mg/dL) 108 H 161 H 155 H 11/17/18 07:36 POC Glucose (mg/dL) 161 H Exam: GEN: no acute distress. alert and appropriate. LUNGS: Clear to auscultation bilaterally HEART: Regular rate and rhythm ABDOMEN: soft, + bowel sounds, non-tender, non-distended EXTREMITIES: no edema. NEUROLOGIC: Right fascial droop. Dysarthria. Right motor trace triceps, 2/5 biceps, RLE 4/5. Left motor 5/5 UE/LE. Normal sensation Assessment/Plan: 1. 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 DAPT with ASA/ Plavix for 30 days, then single agent. Lipitor 2. Diabetes: SSI. Continue Januvia and glimepiride 3. Nicotine addiction: Nicotine inhaler PRN 4. DVT Prophylaxis: Heparin S/Q 5. Advance Directives: Full code 11/17/18 10:29
[2018-11-17] MEDS: Atorvastatin* 20 MG TAB PO SCH (17:39)
[2018-11-18] MEDS: Heparin VIAL(*) 5000 UNITS/ML VIAL (FIVE THOUSAND) SUBCUT SCH ×3 (05:29→21:26)
[2018-11-18] MEDS: Insulin LISPRO* 1 UNITS UNIT SUBCUT SCH ×4 (09:08→21:25)
[2018-11-18] MEDS: Aspirin EC TAB* 325 MG PO SCH (09:08)
[2018-11-18] MEDS: Clopidogrel TAB* 75 MG PO SCH (09:08)
[2018-11-18] MEDS: CMCS:SitaGLIPtin (NF) 100 MG TAB PO SCH (09:08)
[2018-11-18] MEDS: CMCS:Glimepiride (NF) 2 MG TAB PO SCH (09:08)
--- NOTE | 2018-11-18 09:55 | PN ---
Progress Note Date of Service: 11/18/18 Note: DAVON MEDINA was visited. Nursing and therapy notes read and reviewed. Bruising on right inner arm. He thinks may be from his arm sliding off his arm rest. No pain. No chest pain, shortness of breath or abdominal pain. Current Medications: Active Medications Generic Name Dose Route Start Last Admin Trade Name Freq PRN Reason Stop Dose Admin Acetaminophen 650 mg 11/13/18 13:10 11/17/18 21:56 Tylenol Tab* PO 650 mg Q6H PRN Administration FEVER/PAIN Aspirin 325 mg 11/14/18 09:00 11/18/18 09:08 Ecotrin Ec Tab* PO 325 mg DAILY NANO Administration Atorvastatin Calcium 20 mg 11/13/18 17:00 11/17/18 17:39 Lipitor* PO 20 mg 1700 NANO Administration Clopidogrel Bisulfate 75 mg 11/14/18 09:00 11/18/18 09:08 Plavix Tab* PO 75 mg DAILY NANO Administration Dextrose 12.5 gm 11/13/18 13:25 D50w Syringe 50 Ml* IV PUSH .FOR FS < 60 - SS PRN FS < 60 Docusate Sodium 100 mg 11/17/18 09:48 Colace Cap* PO BID PRN CONSTIPATION Glimepiride 2 mg 11/14/18 08:30 11/18/18 09:08 Glimepiride (Nf) PO 2 mg DAILY WITH MEAL NANO Administration Protocol Heparin Sodium (Porcine) 5,000 units 11/13/18 14:00 11/18/18 05:29 Heparin Vial(*) SUBCUT 5,000 units Q8HR NANO Administration Insulin Human Lispro 0 - 10 units 11/14/18 21:00 11/18/18 09:08 Humalog* SUBCUT 2 units ACHS NANO Administration Protocol Magnesium Hydroxide 30 ml 11/13/18 13:10 Milk Of Magnesia Liq* PO Q6H PRN CONSTIPATION Nicotine 10 mg 11/15/18 21:31 Nicotine Inhaler* INH Q2H PRN CRAVING Senna 2 tab 11/13/18 13:10 Senokot Tab* PO BEDTIME PRN CONSTIPATION Sitagliptin Phosphate 100 mg 11/14/18 09:00 11/18/18 09:08 Januvia (Nf) PO 100 mg DAILY NANO Administration Vital Signs: Vital Signs Temp Pulse Resp BP Pulse Ox 98.4 F 62 18 134/62 98 04/21/19 05:32 11/18/18 05:32 11/18/18 05:32 11/18/18 05:32 11/18/18 05:32 Lab Results: Laboratory Results - last 24 hr 11/17/18 11/17/18 11/17/18 12:08 16:35 20:38 POC Glucose (mg/dL) 143 H 108 H 223 H 11/18/18 07:37 POC Glucose (mg/dL) 157 H Exam: GEN: no acute distress. alert and appropriate. LUNGS: Clear to auscultation bilaterally HEART: Regular rate and rhythm ABDOMEN: soft, + bowel sounds, non-tender, non-distended EXTREMITIES: no edema, but swelling at right lateral elbow (may be OA) and ecchymosis on right inner upper arm. not tender. NEUROLOGIC: Right fascial droop. Dysarthria. Right motor trace triceps, 2/5 biceps, RLE 4/5. Left motor 5/5 UE/LE. Normal sensation Assessment/Plan: 1. 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 DAPT with ASA/ Plavix for 30 days, then single agent. Lipitor 2. Diabetes: SSI. Continue Januvia and glimepiride 3. Nicotine addiction: Nicotine inhaler PRN 4. DVT Prophylaxis: Heparin S/Q 5. Advance Directives: Full code 6. Right elbow swelling and arm ecchymosis: x-ray right humerus and elbow. 11/18/18 09:54
[2018-11-18] MEDS: Atorvastatin* 20 MG TAB PO SCH (18:01)
[2018-11-18] MEDS: Acetaminophen TAB* 325 MG PO PRN (21:28)
[2018-11-19] MEDS: Heparin VIAL(*) 5000 UNITS/ML VIAL (FIVE THOUSAND) SUBCUT SCH ×3 (05:59→21:23)
[2018-11-19] MEDS: CMCS:Glimepiride (NF) 2 MG TAB PO SCH (08:37)
[2018-11-19] MEDS: CMCS:SitaGLIPtin (NF) 100 MG TAB PO SCH (08:37)
[2018-11-19] MEDS: Insulin LISPRO* 1 UNITS UNIT SUBCUT SCH ×4 (08:37→21:23)
[2018-11-19] MEDS: Clopidogrel TAB* 75 MG PO SCH (08:37)
[2018-11-19] MEDS: Aspirin EC TAB* 325 MG PO SCH (08:37)
[2018-11-19] MEDS: Atorvastatin* 20 MG TAB PO SCH (17:22)
--- NOTE | 2018-11-19 17:36 | PN ---
Progress Note Date of Service: 11/19/18 Note: DAVON MEDINA was visited. Therapy notes read and reviewed. Seems to have a little bit more movement in his right arm. Some bruising as well. Current Medications: Active Medications Generic Name Dose Route Start Last Admin Trade Name Freq PRN Reason Stop Dose Admin Acetaminophen 650 mg 11/13/18 13:10 11/18/18 21:28 Tylenol Tab* PO 650 mg Q6H PRN Administration FEVER/PAIN Aspirin 325 mg 11/14/18 09:00 11/19/18 08:37 Ecotrin Ec Tab* PO 325 mg DAILY NANO Administration Atorvastatin Calcium 20 mg 11/13/18 17:00 11/19/18 17:22 Lipitor* PO 20 mg 1700 NANO Administration Clopidogrel Bisulfate 75 mg 11/14/18 09:00 11/19/18 08:37 Plavix Tab* PO 75 mg DAILY NANO Administration Dextrose 12.5 gm 11/13/18 13:25 D50w Syringe 50 Ml* IV PUSH .FOR FS < 60 - SS PRN FS < 60 Docusate Sodium 100 mg 11/17/18 09:48 Colace Cap* PO BID PRN CONSTIPATION Glimepiride 2 mg 11/14/18 08:30 11/19/18 08:37 Glimepiride (Nf) PO 2 mg DAILY WITH MEAL NANO Administration Protocol Heparin Sodium (Porcine) 5,000 units 11/13/18 14:00 11/19/18 13:53 Heparin Vial(*) SUBCUT 5,000 units Q8HR NANO Administration Insulin Human Lispro 0 - 10 units 11/14/18 21:00 11/19/18 17:20 Humalog* SUBCUT Not Given ACHS NANO Protocol Magnesium Hydroxide 30 ml 11/13/18 13:10 Milk Of Magnesia Liq* PO Q6H PRN CONSTIPATION Nicotine 10 mg 11/15/18 21:31 Nicotine Inhaler* INH Q2H PRN CRAVING Senna 2 tab 11/13/18 13:10 Senokot Tab* PO BEDTIME PRN CONSTIPATION Sitagliptin Phosphate 100 mg 11/14/18 09:00 11/19/18 08:37 Januvia (Nf) PO 100 mg DAILY NANO Administration Vital Signs: Vital Signs Temp Pulse Resp BP Pulse Ox 98.7 F 62 18 133/64 97 11/19/18 07:06 11/19/18 07:06 11/19/18 07:06 11/19/18 07:06 11/19/18 07:06 Lab Results: Laboratory Results - last 24 hr 11/18/18 11/19/18 11/19/18 20:18 07:40 12:09 POC Glucose (mg/dL) 188 H 154 H 148 H 11/19/18 16:03 POC Glucose (mg/dL) 124 H Exam: GEN: no acute distress. alert and appropriate. LUNGS: Clear to auscultation bilaterally HEART: Regular rate and rhythm ABDOMEN: soft, + bowel sounds, non-tender, non-distended EXTREMITIES: no edema, ecchymosis on right inner upper arm. not tender. NEUROLOGIC: Right facial droop. Dysarthria. Right motor trace triceps, 2/5 biceps, RLE 4/5. Left motor 5/5 UE/LE. Normal sensation Assessment/Plan: 1. 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 DAPT with ASA/ Plavix for 30 days, then single agent. Lipitor 2. Diabetes: SSI. Continue Januvia and glimepiride 3. Nicotine addiction: Nicotine inhaler PRN 4. DVT Prophylaxis: Heparin S/Q 5. Advance Directives: Full code 6. Right elbow swelling and arm ecchymosis: x-ray right humerus and elbow negative. 11/19/18 17:37
[2018-11-20] MEDS: Acetaminophen TAB* 325 MG PO PRN ×2 (00:13→23:49)
[2018-11-20] MEDS: Heparin VIAL(*) 5000 UNITS/ML VIAL (FIVE THOUSAND) SUBCUT SCH ×3 (05:24→21:39)
[2018-11-20] MEDS: Clopidogrel TAB* 75 MG PO SCH (07:47)
[2018-11-20] MEDS: Aspirin EC TAB* 325 MG PO SCH (07:47)
[2018-11-20] MEDS: CMCS:SitaGLIPtin (NF) 100 MG TAB PO SCH (07:47)
[2018-11-20] MEDS: CMCS:Glimepiride (NF) 2 MG TAB PO SCH (07:47)
[2018-11-20] MEDS: Insulin LISPRO* 1 UNITS UNIT SUBCUT SCH ×4 (08:10→21:37)
--- NOTE | 2018-11-20 12:51 | PMRUTEAM ---
PMRU: Team Meeting Current Status: Nursing: Current Status Skin Deviations [none] Rash Skin Deviations [Right Upper Bruise Arm] Skin Deviation Description [ none none] Skin Deviation Description [ Redness at elbow, eleveted on pillows. Right Upper Arm] Physical Therapy: Current Status Bed Mobility Assistance Not Tested Transfer Mobility Assistance Contact Guard Assist Transfer/Bed Mobility Large Base Quad Cane Recommended Devices Ambulation Assistance Min Assist Ambulation Assistive Devices Large Base Quad Cane Number of Feet Patient 2x110, 1x75 Ambulated Stairs Assistance Not Tested Curb Not Tested Occupational Therapy: Current Status Upper Body Dressing Supervision,Min Assist Lower Body Dressing Min Assist,Mod Assist Lower Body Dressing Progress CGA for balance in standing, assist to hike right side, assist to tie shoes Bathing Min Assist Bathing Progress for rear perineal hygiene in standing Toileting Min Assist,Mod Assist Toilet Transfer Contact Guard Assist,Min Assist Shower Transfer Min Assist Eating Supervision Rec Therapy: Current Status Summary of Assessment and Pt. has been watching TV while in his room - Clinical Impression particularly one soap opera that he and his both enjoy and fill each other in on when one of them misses the episode. Pt. has been open to visits and conversation. Treatment Goals Pt. will continue to engage in leisure while on the unit Treatment Plan Continue providing recreation services Social Work: Current Status Discharge Plan return home with home care svs and family support Potential for Family Training TBD Anticipated Discharge Home Destination Discharge With return home with home care svs and family support Nutrition: Current Status Monitoring Pt is eating well and meeting needs. Hx DM - no new education needs. Glycemic control excellent ( generally well within inpatient parameters <180). Pt does need some assistance with opening certain items (R side dominant and unable to use R side at present) but otherwise able to feed self independently. 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 Otherwise no further specific nutrition intervention anticipated. Speech: Current Status Assessment Patient is progressing as expected. Speech quality continues to improve. Patient c/o several episodes of difficulty swallowing when drinking too much too quickly, and responded well to instruction in compensatory swallowing strategies and oropharyngeal swallowing exercises. Speech Current Status Goal 1 Mild-moderate impairment Goals: Physical Therapy: Initial Goals Bed Mobility Assistance Independent Transfer Mobility Assistance Independent Transfer/Bed Mobility Large Base Quad Cane Recommended Devices Ambulation Independent Ambulation Recommended Devices Large Base Quad Cane Ambulation Distance 150 Stairs Assistance Independent Stair Recommended Devices One Rail Number of Stairs 12 Physical Therapy: Updated Goals Transfer/Bed Mobility Large Base Quad Cane Recommended Devices Occupational Therapy: Initial Goals Goals to be Completed in (Days 7-10 ) Upper Body Bathing Routine Modified Independent with Lower Body Bathing Routine Modified Independent with Upper Body Dressing Routine Modified Independent with Lower Body Dressing Routine Modified Independent with Toilet Hygeine and Clothing Modified Independent with Management Routine Toilet Transfer Routine Modified Independent with Step-In Shower Transfer Modified Independent with Routine Tub Transfer Routine Modified Independent with Functional Transfers for ADL Modified Independent with Grooming Routine Modified Independent with Feeding Routine Modified Independent with Nutrition: Goals Intervention Goals 1. Maintain adequate oral intake to support maintenance of lean body mass. 2. Maintain adequate glycemic control per inpatient parameters. 3. Receives assistance with tray set up as appropriate. 4. Maintains regular bowel pattern w/o constipation or diarrhea. Speech: Goals Speech Goal 1 Motor speech Speech Evaluation Status Goal Mild-moderate impairment 1 Speech Current Status Goal 1 Mild-moderate impairment Goal 1 Comments LTG: The patient will independently speak with 100 % intelligibility and symmetrical facial expression. Status: Progressing as expected. ST) The patient will use compensatory strategies to increase speech intelligibility to 100% in spontaneous conversational speech, given minimal cueing. Status: Progressing as expected. 2) Pt will use compensatory articulation strategies to increase speech intelligibility to 95% in structured speech activities, given Moderate cueing. Status: Met, address goal #1. Given direct models of phrases loaded with target speech sounds, patient repeated with 97% intelligibility. Two words were unintelligible because labial distortion of S sounded like SH. Patient repeated direct models of multisyllabic words and phrases with mild labial distortion. 3) Pt will complete orofacial exercises to increase right side lip retraction and elevation to 80% of unaffected side, given moderate cues. Status: Progressing as expected. Patient demonstrated partial elevation of his Left upper lip during speech, and summetrical elevation when he smiled spontanoeusly. Patient demonstrated abiity to raise his Left upper lip intentionally, by 'faking' a laugh or smile. CEMENT GUN OPERATOR provided printed and verbal instruction in compensatory swallowing strategies and oropharyngeal swallowing exercises: 1) Postural strategy: sit upright, hold head up and back, tuck chin, and swallow again after 2-3 seconds. 2) Tongue base retraction exercise: Patient completed Kell maneuver for , and was able to swallow his secretions with the tip of his tongue pressed against his front teeth. Given moderate cueing, patient was able to swallow while protruding his tongue tip several millimeters past his teeth. 3) Hyolaryngeal excursion exercise for crciopharyngeal patency: Patient completed Jaw Opening exercise 5x given minimal cueing. Given skilled instruction and moderate cueing faded to independent, patient completed the Haylie manueuver 5x and held his hyoid at maximal protraction for 2-3 seconds I'ly. Social Work: Goals Discharge Plan return home with home care svs and family support Potential for Family Training TBD Anticipated Discharge Home Destination Discharge With return home with home care svs and family support Care Plan: Care Plan ADL's - Improve/Maintain Start: 11/13/18 15:33 Freq: DAILY Status: Active Target: Protocol: Activity Type Activity Date Activity User E-Sign Co-Sign Detail Recorded Client Recorded Date Recorded By Document 11/19/18 15:52 [id number] 11/19/18 15:52 [id number] 11/19/18 15:52 PMRU Outcome: ADL's/ADL Transfers Orders/Interventions Occupational Therapy Evaluation & Treatment Communication Tool in Patient Room Device Yes Address Deficits Secondary To: CVA Patient to receive OT 5x/wk for 60-120 Therex min/day Self Care Management Group Therapy Neuromuscular ReEducation UE/LE ADL's with Assist Yes: Jo ADL Transfers with Assist Yes: Jo Toileting: Transfers,Clothing Management Yes: Jo ,Hygeine w/Assist Light Kitchen/Laundry w/Assist No Progression Toward Outcome/Goals Progressing Outcome/Goals Met Pt participated well in treatment session, new wrist flexion activation today with AAROM which is improvement from last session 11/16. Communication-Improve/Maintain Start: 11/13/18 14:04 Freq: DAILY Status: Active Target: Protocol: Activity Type Activity Date Activity User E-Sign Co-Sign Detail Recorded Client Recorded Date Recorded By Document 11/20/18 02:25 [id number] 11/20/18 02:25 [id number] 11/20/18 02:25 PMRU Outcome: Communication/Cognitive Status Outcome/Goals Makes Needs Known Effectively Other Outcomes/Goals Motor Speech: LTG: The patient will independently speak with 100% intelligibility and symmetrical facial expression. Status: Progressing as expected ST) The patient will use compensatory strategies to increase speech intelligibility to 100% in spontaneous conversational speech, given minimal cueing. Status: Progressing as expected 2) Pt will use compensatory articulation strategies to increase speech intelligibility to 95% in structured speech activities, given moderate cueing. Status: Met , advance to goal 1). 3) Pt will complete orofacial exercises to increase right side lip retraction and elevation to 80 % of unaffected side, given moderate cues. Status: Progressing as expected. Progression Toward Outcomes/Goals Progressing Coping/Psych-Improve/Maintain Start: 11/13/18 14:04 Freq: QSHIFT Status: Active Target: Protocol: Activity Type Activity Date Activity User E-Sign Co-Sign Detail Recorded Client Recorded Date Recorded By Document 11/20/18 02:25 [id number] 11/20/18 02:25 [id number] 11/20/18 02:25 PMRU Outcome: Coping/Psychosocial Coping Outcome/Goals Verbalization of Acceptance of Rehab Admit Verbalization of Sense of Control Over Health Status Willingness to Participate in Treatment Plan and Basic Needs Psychosocial Outcome/Goals Maintain/ Improve Emotional Health Progression Toward Outcome/Goals - Progressing Coping Progression Toward Outcome/Goals - Progressing Psychosocial DVT Prophylaxis- Improve/Maintain Start: 11/13/18 14:04 Freq: QSHIFT Status: Active Target: Protocol: Activity Type Activity Date Activity User E-Sign Co-Sign Detail Recorded Client Recorded Date Recorded By Document 11/20/18 02:25 [id number] 11/20/18 02:25 [id number] 11/20/18 02:25 PMRU Outcome: DVT Prophylaxis Outcome/Goals Remains Free of DVT Free of complications from current DVT Complies with DVT Prophylaxis /Treatment Progression Toward Outcome/Goals Progressing Discharge Planning - Improve/Maintain Start: 11/13/18 14:04 Freq: DAILY Status: Active Target: Protocol: Activity Type Activity Date Activity User E-Sign Co-Sign Detail Recorded Client Recorded Date Recorded By Document 11/20/18 02:25 [id number] 11/20/18 02:25 [id number] 11/20/18 02:25 PMRU Outcome: Discharge Planning Update Patient Family No Outcome/Goals Demonstrates Understanding of Discharge Plan Progression Toward Outcome/Goals Progressing Education-Improve/Maintain Start: 11/13/18 14:04 Freq: QSHIFT Status: Active Target: Protocol: Activity Type Activity Date Activity User E-Sign Co-Sign Detail Recorded Client Recorded Date Recorded By Document 11/20/18 02:25 [id number] 11/20/18 02:25 [id number] 11/20/18 02:25 PMRU Outcome: Education Outcome/Goals Encourage Questions Progression Toward Outcome/Goals Progressing Medication Administration Start: 11/13/18 14:04 Freq: QSHIFT Status: Active Target: Protocol: Activity Type Activity Date Activity User E-Sign Co-Sign Detail Recorded Client Recorded Date Recorded By Document 11/20/18 02:25 [id number] 11/20/18 02:25 [id number] 11/20/18 02:25 PMRU Outcome: Medication Administration Assess Patient Knowledge/Teach Med Yes Education for all Meds Outcome/Goals Patient Independent with Medication Administration at Home Family/ Caregiver Administer Medications at Home Progression Towards Outcome/Goals Progressing Is Patient Going Home on Lovenox? No Metabolic Status- Improve/Maintain Start: 11/13/18 14:04 Freq: QSHIFT Status: Active Target: Protocol: Activity Type Activity Date Activity User E-Sign Co-Sign Detail Recorded Client Recorded Date Recorded By Document 11/20/18 02:25 [id number] 11/20/18 02:25 [id number] 11/20/18 02:25 PMRU Outcome: Metabolic Status Have Fingersticks Been Ordered Yes Fingerstick Order Frequency AC & HS Outcome/Goals Maintain/ Improve Metabolic Status Demonstrate Knowledge of Prevention/ Treatment of Metabolic Imbalances Progression Toward Outcome/Goals Progressing Mobility- Improve/Maintain Start: 11/13/18 19:10 Freq: DAILY Status: Active Target: Protocol: Activity Type Activity Date Activity User E-Sign Co-Sign Detail Recorded Client Recorded Date Recorded By Document 11/13/18 19:10 [id number] 11/13/18 19:11 [id number] 11/13/18 19:10 PMRU Outcome: Mobility Physical Therapy Evaluation and Yes Treatment Activity OOB with Assistance Yes WBAT Yes Device Yes Assistance Yes Patient to be seen 5x/wk for 60-120 min/ Therex day for: Mobility Training Gait Training Balance Outcome/Goals Maintain/ Achieve Baseline Mobility Status Improve Mobility Status Demonstrates Proper Use of Assistive Devices Free from Complications of Immobility Bed Mobility Yes: independent Transfers Yes: independent with quad cane Gait x ft Yes: independnet with quad cane 150' Up/Down Stairs Yes: independent up down 12 stairs with 1 rail Neurological- Improve/Maintain Start: 11/13/18 14:04 Freq: QSHIFT Status: Active Target: Protocol: Activity Type Activity Date Activity User E-Sign Co-Sign Detail Recorded Client Recorded Date Recorded By Document 11/20/18 02:25 [id number] 11/20/18 02:25 [id number] 11/20/18 02:25 PMRU Outcome: Neurological Weakness/Aphasia Weakness Right Side Outcome/Goals Maintain/ Achieve Baseline Neurological Status Improve Neurological Status Prevent Avoidable Neurological Decline Demonstrate Knowledge of Prevention/Tx of Neuro Disorders/ Complication Progression Toward Outcome/Goals Progressing Safety- Improve/Maintain Start: 11/13/18 14:06 Freq: QSHIFT Status: Active Target: Protocol: Activity Type Activity Date Activity User E-Sign Co-Sign Detail Recorded Client Recorded Date Recorded By Document 11/20/18 02:25 [id number] 11/20/18 02:25 [id number] 11/20/18 02:25 PMRU Outcome: Safety Outcome/Goals Remain Free of Injury or Harm Cooperates with Safety Measures for Least Restrictive Environment Progression Toward Outcome/Goals Progressing Skin- Improve/Maintain Start: 11/13/18 14:04 Freq: QSHIFT Status: Active Target: Protocol: Activity Type Activity Date Activity User E-Sign Co-Sign Detail Recorded Client Recorded Date Recorded By Document 11/20/18 02:25 [id number] 11/20/18 02:25 [id number] 11/20/18 02:25 PMRU Outcome: Skin Skin Risk Level Low Dressing Change Comments pillows Outcome/Goals Maintain/ Improve Skin Intergrity Progression Toward Outcome/Goals Progressing Medicine Note: Length of Stay: 1 week Anticipated Discharge Destination: Home Tentative Discharge Date: 11/27/18 Discharged to: home
[2018-11-20] MEDS: Atorvastatin* 20 MG TAB PO SCH (17:25)
--- NOTE | 2018-11-20 19:31 | PN ---
Progress Note Date of Service: 11/20/18 Note: DAVON MEDINA was visited. Therapy notes read and reviewed. He was discussed in interdisciplinary team rounds. He is steadily improving with therapy. Current Medications: Active Medications Generic Name Dose Route Start Last Admin Trade Name Freq PRN Reason Stop Dose Admin Acetaminophen 650 mg 11/13/18 13:10 11/20/18 00:13 Tylenol Tab* PO 650 mg Q6H PRN Administration FEVER/PAIN Aspirin 325 mg 11/14/18 09:00 11/20/18 07:47 Ecotrin Ec Tab* PO 325 mg DAILY NANO Administration Atorvastatin Calcium 20 mg 11/13/18 17:00 11/20/18 17:25 Lipitor* PO 20 mg 1700 NANO Administration Clopidogrel Bisulfate 75 mg 11/14/18 09:00 11/20/18 07:47 Plavix Tab* PO 75 mg DAILY NANO Administration Dextrose 12.5 gm 11/13/18 13:25 D50w Syringe 50 Ml* IV PUSH .FOR FS < 60 - SS PRN FS < 60 Docusate Sodium 100 mg 11/17/18 09:48 Colace Cap* PO BID PRN CONSTIPATION Glimepiride 2 mg 11/14/18 08:30 11/20/18 07:47 Glimepiride (Nf) PO 2 mg DAILY WITH MEAL NANO Administration Protocol Heparin Sodium (Porcine) 5,000 units 11/13/18 14:00 11/20/18 14:40 Heparin Vial(*) SUBCUT 5,000 units Q8HR NANO Administration Insulin Human Lispro 0 - 10 units 11/14/18 21:00 11/20/18 17:12 Humalog* SUBCUT Not Given ACHS NANO Protocol Magnesium Hydroxide 30 ml 11/13/18 13:10 Milk Of Magnesia Liq* PO Q6H PRN CONSTIPATION Nicotine 10 mg 11/15/18 21:31 Nicotine Inhaler* INH Q2H PRN CRAVING Senna 2 tab 11/13/18 13:10 Senokot Tab* PO BEDTIME PRN CONSTIPATION Sitagliptin Phosphate 100 mg 11/14/18 09:00 11/20/18 07:47 Januvia (Nf) PO 100 mg DAILY NANO Administration Vital Signs: Vital Signs Temp Pulse Resp BP Pulse Ox 98.5 F 66 20 126/61 98 11/20/18 16:12 11/20/18 16:12 11/20/18 17:57 11/20/18 16:12 11/20/18 17:57 Lab Results: Laboratory Results - last 24 hr 11/19/18 11/20/18 11/20/18 20:19 07:33 11:44 POC Glucose (mg/dL) 174 H 157 H 157 H 11/20/18 16:57 POC Glucose (mg/dL) 97 Exam: GEN: no acute distress. alert and appropriate. LUNGS: Clear to auscultation bilaterally HEART: Regular rate and rhythm ABDOMEN: soft, + bowel sounds, non-tender, non-distended EXTREMITIES: no edema, ecchymosis on right inner upper arm. not tender. NEUROLOGIC: Right facial droop. Dysarthria. Right motor 1-2/5 triceps, 2/5 biceps, RLE 4/5. Left motor 5/5 UE/LE. Normal sensation Assessment/Plan: 1. 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 DAPT with ASA/ Plavix for 30 days, then single agent. Lipitor 2. Diabetes: SSI. Continue Januvia and glimepiride 3. Nicotine addiction: Nicotine inhaler PRN 4. DVT Prophylaxis: Heparin S/Q 5. Advance Directives: Full code 6. Right elbow swelling and arm ecchymosis: x-ray right humerus and elbow negative. 11/20/18 19:32
[2018-11-21 05:21] LABS: ABS Basophils 0 10^3/ul (0-0.2); ABS Eosinophils 0.1 10^3/ul (0-0.6); ABS Lymphocytes 1.8 10^3/ul (1.0-4.8); ABS Neutrophils 3.3 10^3/ul (1.5-7.7); ABS Nucleated RBC 0 10^3/ul; Eosinophil % 2.1 %; Hematocrit 39 % (36-46); Lymphocyte % 28.6 %; Mean Corpuscular HGB Conc 34 g/dL (31-36); Mean Corpuscular Hemoglobin 30 pg (27-31); Mean Corpuscular Volume 90 fL (80-94); Mean Platelet Volume 9.2 fL (7.4-10.4); Nucleated Red Blood Cells % 0; Platelet Count 191 10^3/uL (150-450); Red Blood Count 4.32 10^6 /uL (4.18-5.48); Red Cell Distribution Width 15 % (10.5-15); White Blood Count 6.2 10^3/uL (3.5-10.8)
[2018-11-21 05:39] LABS: Albumin 3.6 g/dL (3.2-5.2); Albumin/Globulin Ratio 1.4 (1-3); BUN/Creatinine Ratio 19.6 (8-20); Calcium 9.2 mg/dL (8.6-10.3); EGFR African American 86.9 (>60); EGFR Non-African American 71.8 (>60); Globulin 2.6 g/dL (2-4); Total Bilirubin 0.5 mg/dL (0.2-1.0); Total Protein 6.2 g/dL (6.4-8.9)
[2018-11-21] MEDS: Heparin VIAL(*) 5000 UNITS/ML VIAL (FIVE THOUSAND) SUBCUT SCH ×3 (05:50→22:04)
[2018-11-21] MEDS: Aspirin EC TAB* 325 MG PO SCH (09:16)
[2018-11-21] MEDS: Insulin LISPRO* 1 UNITS UNIT SUBCUT SCH ×4 (09:16→22:03)
[2018-11-21] MEDS: CMCS:SitaGLIPtin (NF) 100 MG TAB PO SCH (09:16)
[2018-11-21] MEDS: Clopidogrel TAB* 75 MG PO SCH (09:16)
[2018-11-21] MEDS: Acetaminophen TAB* 325 MG PO PRN ×2 (14:47→22:04)
[2018-11-21] MEDS: Atorvastatin* 20 MG TAB PO SCH (17:08)
--- NOTE | 2018-11-21 23:06 | PN ---
Progress Note Date of Service: 11/21/18 Note: DAVON MEDINA was visited. Therapy notes read and reviewed. He seems to be walking well and went 600 feet with PT today, with a LBQC and min assist. Current Medications: Active Medications Generic Name Dose Route Start Last Admin Trade Name Freq PRN Reason Stop Dose Admin Acetaminophen 650 mg 11/13/18 13:10 11/21/18 22:04 Tylenol Tab* PO 650 mg Q6H PRN Administration FEVER/PAIN Aspirin 325 mg 11/14/18 09:00 11/21/18 09:16 Ecotrin Ec Tab* PO 325 mg DAILY NANO Administration Atorvastatin Calcium 20 mg 11/13/18 17:00 11/21/18 17:08 Lipitor* PO 20 mg 1700 NANO Administration Clopidogrel Bisulfate 75 mg 11/14/18 09:00 11/21/18 09:16 Plavix Tab* PO 75 mg DAILY NANO Administration Dextrose 12.5 gm 11/13/18 13:25 D50w Syringe 50 Ml* IV PUSH .FOR FS < 60 - SS PRN FS < 60 Docusate Sodium 100 mg 11/17/18 09:48 Colace Cap* PO BID PRN CONSTIPATION Glimepiride 2 mg 11/22/18 08:30 Glimepiride (Nf) PO DAILY WITH MEAL [facility] Heparin Sodium (Porcine) 5,000 units 11/13/18 14:00 11/21/18 22:04 Heparin Vial(*) SUBCUT 5,000 units Q8HR NANO Administration Insulin Human Lispro 0 - 10 units 11/14/18 21:00 11/21/18 22:03 Humalog* SUBCUT 2 units ACHS NANO Administration Protocol Magnesium Hydroxide 30 ml 11/13/18 13:10 Milk Of Magnesia Liq* PO Q6H PRN CONSTIPATION Nicotine 10 mg 11/15/18 21:31 Nicotine Inhaler* INH Q2H PRN CRAVING Senna 2 tab 11/13/18 13:10 Senokot Tab* PO BEDTIME PRN CONSTIPATION Sitagliptin Phosphate 100 mg 11/14/18 09:00 11/21/18 09:16 Januvia (Nf) PO 100 mg DAILY NANO Administration Vital Signs: Vital Signs Temp Pulse Resp BP Pulse Ox 98.3 F 52 18 122/58 98 11/21/18 17:47 11/21/18 17:47 11/21/18 20:00 11/21/18 17:47 11/21/18 20:00 Lab Results: Laboratory Results - last 24 hr 11/21/18 11/21/18 11/21/18 05:05 05:05 07:31 WBC 6.2 RBC 4.32 Hgb 13.0 L Hct 39 MCV 90 MCH 30 MCHC 34 RDW 15 Plt Count 191 MPV 9.2 Neut % (Auto) 53.5 Lymph % (Auto) 28.6 [place] % (Auto) 15.4 Eos % (Auto) 2.1 Baso % (Auto) 0.4 Absolute Neuts (auto) 3.3 Absolute Lymphs (auto) 1.8 Absolute Monos (auto) 1.0 H Absolute Eos (auto) 0.1 Absolute Basos (auto) 0 Absolute Nucleated RBC 0 Nucleated RBC % 0 Sodium 140 Potassium 4.0 Chloride 112 H Carbon Dioxide 24 Anion Gap 4 BUN 20 Creatinine 1.02 Est GFR ( Amer) 86.9 Est GFR (Non-Af Amer) 71.8 BUN/Creatinine Ratio 19.6 Glucose 133 H POC Glucose (mg/dL) 134 H Calcium 9.2 Total Bilirubin 0.50 AST 16 ALT 21 Alkaline Phosphatase 62 Total Protein 6.2 L Albumin 3.6 Globulin 2.6 Albumin/Globulin Ratio 1.4 11/21/18 11/21/18 11/21/18 11:58 16:16 20:54 WBC RBC Hgb Hct MCV MCH MCHC RDW Plt Count MPV Neut % (Auto) Lymph % (Auto) [place] % (Auto) Eos % (Auto) Baso % (Auto) Absolute Neuts (auto) Absolute Lymphs (auto) Absolute Monos (auto) Absolute Eos (auto) Absolute Basos (auto) Absolute Nucleated RBC Nucleated RBC % Sodium Potassium Chloride Carbon Dioxide Anion Gap BUN Creatinine Est GFR ( Amer) Est GFR (Non-Af Amer) BUN/Creatinine Ratio Glucose POC Glucose (mg/dL) 118 H 181 H 176 H Calcium Total Bilirubin AST ALT Alkaline Phosphatase Total Protein Albumin Globulin Albumin/Globulin Ratio Exam: GENERAL: no acute distress. alert and appropriate. LUNGS: Clear to auscultation bilaterally HEART: Regular rate and rhythm ABDOMEN: soft, + bowel sounds, non-tender, non-distended EXTREMITIES: no edema, ecchymosis on right inner upper arm. not tender. NEUROLOGIC: Right facial droop. Dysarthria. Right motor 1-2/5 triceps, 2/5 biceps, RLE 4/5. Left motor 5/5 UE/LE. Normal sensation Assessment/Plan: 1. 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 DAPT with ASA/ Plavix for 30 days, then single agent. Lipitor 2. Diabetes: SSI. Continue Januvia and glimepiride 3. Nicotine addiction: Nicotine inhaler PRN 4. DVT Prophylaxis: Heparin S/Q 5. Advance Directives: Full code 11/21/18 23:07
[2018-11-22] MEDS: Heparin VIAL(*) 5000 UNITS/ML VIAL (FIVE THOUSAND) SUBCUT SCH ×3 (05:25→21:24)
[2018-11-22] MEDS: Insulin LISPRO* 1 UNITS UNIT SUBCUT SCH ×4 (09:18→21:21)
[2018-11-22] MEDS: CMCS:Glimepiride (NF) 2 MG TAB PO SCH (09:19)
[2018-11-22] MEDS: Clopidogrel TAB* 75 MG PO SCH (09:19)
[2018-11-22] MEDS: Aspirin EC TAB* 325 MG PO SCH (09:19)
[2018-11-22] MEDS: CMCS:SitaGLIPtin (NF) 100 MG TAB PO SCH (09:19)
[2018-11-22] MEDS: Atorvastatin* 20 MG TAB PO SCH (17:56)
--- NOTE | 2018-11-22 20:42 | PN ---
Progress Note Date of Service: 11/22/18 Note: DAVON MEDINA was visited. Therapy notes read and reviewed. Blood sugars are a little high, a bit up and down. Walking fairly well with therapy. Right arm getting stronger. Current Medications: Active Medications Generic Name Dose Route Start Last Admin Trade Name Freq PRN Reason Stop Dose Admin Acetaminophen 650 mg 11/13/18 13:10 11/21/18 22:04 Tylenol Tab* PO 650 mg Q6H PRN Administration FEVER/PAIN Aspirin 325 mg 11/14/18 09:00 11/22/18 09:19 Ecotrin Ec Tab* PO 325 mg DAILY NANO Administration Atorvastatin Calcium 20 mg 11/13/18 17:00 11/22/18 17:56 Lipitor* PO 20 mg 1700 NANO Administration Clopidogrel Bisulfate 75 mg 11/14/18 09:00 11/22/18 09:19 Plavix Tab* PO 75 mg DAILY NANO Administration Dextrose 12.5 gm 11/13/18 13:25 D50w Syringe 50 Ml* IV PUSH .FOR FS < 60 - SS PRN FS < 60 Docusate Sodium 100 mg 11/17/18 09:48 Colace Cap* PO BID PRN CONSTIPATION Glimepiride 2 mg 11/22/18 08:30 11/22/18 09:19 Glimepiride (Nf) PO 2 mg DAILY WITH MEAL NANO Administration Heparin Sodium (Porcine) 5,000 units 11/13/18 14:00 11/22/18 13:56 Heparin Vial(*) SUBCUT 5,000 units Q8HR NANO Administration Insulin Human Lispro 0 - 10 units 11/14/18 21:00 11/22/18 18:28 Humalog* SUBCUT Not Given ACHS [facility] Protocol Magnesium Hydroxide 30 ml 11/13/18 13:10 Milk Of Magnesia Liq* PO Q6H PRN CONSTIPATION Nicotine 10 mg 11/15/18 21:31 Nicotine Inhaler* INH Q2H PRN CRAVING Senna 2 tab 11/13/18 13:10 Senokot Tab* PO BEDTIME PRN CONSTIPATION Sitagliptin Phosphate 100 mg 11/14/18 09:00 11/22/18 09:19 Januvia (Nf) PO 100 mg DAILY NANO Administration Vital Signs: Vital Signs Temp Pulse Resp BP Pulse Ox 98.1 F 75 16 116/69 100 11/22/18 14:17 11/22/18 14:17 11/22/18 14:17 11/22/18 14:17 11/22/18 14:17 Lab Results: Laboratory Results - last 24 hr 11/21/18 11/22/18 11/22/18 20:54 08:10 11:36 POC Glucose (mg/dL) 176 H 168 H 252 H Exam: GENERAL: no acute distress. alert and appropriate. LUNGS: Clear to auscultation bilaterally HEART: Regular rate and rhythm ABDOMEN: soft, + bowel sounds, non-tender, non-distended EXTREMITIES: no edema, ecchymosis on right inner upper arm. not tender. NEUROLOGIC: Right facial droop. Dysarthria. Right motor 1-2/5 triceps, 2/5 biceps, RLE 4/5. Left motor 5/5 UE/LE. Normal sensation Assessment/Plan: 1. 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 DAPT with ASA/ Plavix for 30 days, then single agent. Lipitor 2. Diabetes: SSI. Continue Januvia and glimepiride 3. Nicotine addiction: Nicotine inhaler PRN 4. DVT Prophylaxis: Heparin S/Q 5. Advance Directives: Full code 11/22/18 20:43
[2018-11-23] MEDS: Heparin VIAL(*) 5000 UNITS/ML VIAL (FIVE THOUSAND) SUBCUT SCH ×3 (05:53→21:40)
[2018-11-23] MEDS: CMCS:Glimepiride (NF) 2 MG TAB PO SCH (08:33)
[2018-11-23] MEDS: Insulin LISPRO* 1 UNITS UNIT SUBCUT SCH ×4 (08:33→21:39)
[2018-11-23] MEDS: CMCS:SitaGLIPtin (NF) 100 MG TAB PO SCH (08:34)
[2018-11-23] MEDS: Clopidogrel TAB* 75 MG PO SCH (08:34)
[2018-11-23] MEDS: Aspirin EC TAB* 325 MG PO SCH (08:34)
--- NOTE | 2018-11-23 10:13 | PN ---
Progress Note Date of Service: 11/23/18 Note: DAVON MEDINA was visited. Nursing and therapy notes read and reviewed. No chest pain, shortness of breath or abdominal pain. Getting movement back in hand. Current Medications: Active Medications Generic Name Dose Route Start Last Admin Trade Name Freq PRN Reason Stop Dose Admin Acetaminophen 650 mg 11/13/18 13:10 11/21/18 22:04 Tylenol Tab* PO 650 mg Q6H PRN Administration FEVER/PAIN Aspirin 325 mg 11/14/18 09:00 11/23/18 08:34 Ecotrin Ec Tab* PO 325 mg DAILY NANO Administration Atorvastatin Calcium 20 mg 11/13/18 17:00 11/22/18 17:56 Lipitor* PO 20 mg 1700 NANO Administration Clopidogrel Bisulfate 75 mg 11/14/18 09:00 11/23/18 08:34 Plavix Tab* PO 75 mg DAILY NANO Administration Dextrose 12.5 gm 11/13/18 13:25 D50w Syringe 50 Ml* IV PUSH .FOR FS < 60 - SS PRN FS < 60 Docusate Sodium 100 mg 11/17/18 09:48 Colace Cap* PO BID PRN CONSTIPATION Glimepiride 2 mg 11/22/18 08:30 11/23/18 08:33 Glimepiride (Nf) PO 2 mg DAILY WITH MEAL NANO Administration Heparin Sodium (Porcine) 5,000 units 11/13/18 14:00 11/23/18 05:53 Heparin Vial(*) SUBCUT 5,000 units Q8HR NANO Administration Insulin Human Lispro 0 - 10 units 11/14/18 21:00 11/23/18 08:33 Humalog* SUBCUT 1 units ACHS NANO Administration Protocol Magnesium Hydroxide 30 ml 11/13/18 13:10 Milk Of Magnesia Liq* PO Q6H PRN CONSTIPATION Nicotine 10 mg 11/15/18 21:31 Nicotine Inhaler* INH Q2H PRN CRAVING Senna 2 tab 11/13/18 13:10 Senokot Tab* PO BEDTIME PRN CONSTIPATION Sitagliptin Phosphate 100 mg 11/14/18 09:00 11/23/18 08:34 Januvia (Nf) PO 100 mg DAILY NANO Administration Vital Signs: Vital Signs Temp Pulse Resp BP Pulse Ox 97.8 F 64 18 118/62 98 11/22/18 16:00 11/23/18 06:05 11/23/18 00:00 11/22/18 16:00 11/23/18 05:40 Lab Results: Laboratory Results - last 24 hr 11/22/18 11/22/18 11/22/18 08:10 11:36 16:36 POC Glucose (mg/dL) 168 H 252 H 77 11/22/18 11/23/18 20:40 07:41 POC Glucose (mg/dL) 278 H 133 H Exam: GENERAL: no acute distress. alert and appropriate. LUNGS: Clear to auscultation bilaterally HEART: Regular rate and rhythm ABDOMEN: soft, + bowel sounds, non-tender, non-distended EXTREMITIES: no edema, ecchymosis on right inner upper arm resolving. not tender. NEUROLOGIC: Right facial droop. Dysarthria. Right motor 1-2/5 triceps, 2/5 biceps, 1/5 thumb and finger flexion, RLE 4/5. Left motor 5/5 UE/LE. Normal sensation Assessment/Plan: 1. 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 DAPT with ASA/ Plavix for 30 days, then single agent. Lipitor 2. Diabetes: SSI. Continue Januvia and glimepiride 3. Nicotine addiction: Nicotine inhaler PRN 4. DVT Prophylaxis: Heparin S/Q 5. Advance Directives: Full code 11/23/18 10:13
[2018-11-23] MEDS: Atorvastatin* 20 MG TAB PO SCH (16:36)
[2018-11-24] MEDS: Heparin VIAL(*) 5000 UNITS/ML VIAL (FIVE THOUSAND) SUBCUT SCH ×3 (05:32→21:33)
[2018-11-24] MEDS: Insulin LISPRO* 1 UNITS UNIT SUBCUT SCH ×4 (09:01→21:32)
[2018-11-24] MEDS: Aspirin EC TAB* 325 MG PO SCH (09:03)
[2018-11-24] MEDS: CMCS:Glimepiride (NF) 2 MG TAB PO SCH (09:03)
[2018-11-24] MEDS: Clopidogrel TAB* 75 MG PO SCH (09:04)
[2018-11-24] MEDS: CMCS:SitaGLIPtin (NF) 100 MG TAB PO SCH (09:04)
--- NOTE | 2018-11-24 11:12 | PN ---
Progress Note Date of Service: 11/24/18 Note: DAVON MEDINA was visited. Nursing and therapy notes read and reviewed. No chest pain, shortness of breath or abdominal pain. Had high FS last night then low after insulin. He reports all his home meds were brought in with him when he came to the hospital. I confirmed with pharmacy they have his home invokana. Current Medications: Active Medications Generic Name Dose Route Start Last Admin Trade Name Freq PRN Reason Stop Dose Admin Acetaminophen 650 mg 11/13/18 13:10 11/21/18 22:04 Tylenol Tab* PO 650 mg Q6H PRN Administration FEVER/PAIN Aspirin 325 mg 11/14/18 09:00 11/24/18 09:03 Ecotrin Ec Tab* PO 325 mg DAILY NANO Administration Atorvastatin Calcium 20 mg 11/13/18 17:00 11/23/18 16:36 Lipitor* PO 20 mg 1700 NANO Administration Clopidogrel Bisulfate 75 mg 11/14/18 09:00 11/24/18 09:04 Plavix Tab* PO 75 mg DAILY NANO Administration Dextrose 12.5 gm 11/13/18 13:25 D50w Syringe 50 Ml* IV PUSH .FOR FS < 60 - SS PRN FS < 60 Docusate Sodium 100 mg 11/17/18 09:48 Colace Cap* PO BID PRN CONSTIPATION Glimepiride 2 mg 11/22/18 08:30 11/24/18 09:03 Glimepiride (Nf) PO 2 mg DAILY WITH MEAL NANO Administration Heparin Sodium (Porcine) 5,000 units 11/13/18 14:00 11/24/18 05:32 Heparin Vial(*) SUBCUT 5,000 units Q8HR NANO Administration Insulin Human Lispro 0 - 10 units 11/14/18 21:00 11/24/18 09:01 Humalog* SUBCUT 2 units ACHS NANO Administration Protocol Magnesium Hydroxide 30 ml 11/13/18 13:10 Milk Of Magnesia Liq* PO Q6H PRN CONSTIPATION Nicotine 10 mg 11/15/18 21:31 Nicotine Inhaler* INH Q2H PRN CRAVING Senna 2 tab 11/13/18 13:10 Senokot Tab* PO BEDTIME PRN CONSTIPATION Sitagliptin Phosphate 100 mg 11/14/18 09:00 11/24/18 09:04 Januvia (Nf) PO 100 mg DAILY NANO Administration Vital Signs: Vital Signs Temp Pulse Resp BP Pulse Ox 97.9 F 62 18 120/62 98 11/24/18 05:54 11/24/18 05:54 11/24/18 08:00 11/24/18 05:54 11/24/18 08:00 Lab Results: Laboratory Results - last 24 hr 11/23/18 11/23/18 11/23/18 12:19 16:37 21:00 POC Glucose (mg/dL) 138 H 218 H 357 H 11/24/18 11/24/18 00:14 07:39 POC Glucose (mg/dL) 92 163 H Exam: GENERAL: no acute distress. alert and appropriate. LUNGS: Clear to auscultation bilaterally HEART: Regular rate and rhythm ABDOMEN: soft, + bowel sounds, non-tender, non-distended EXTREMITIES: no edema, ecchymosis on right inner upper arm resolving. not tender. NEUROLOGIC: Right facial droop. Dysarthria. Right motor 1-2/5 triceps, 2/5 biceps, 1/5 thumb and finger flexion, RLE 4/5. Left motor 5/5 UE/LE. Normal sensation Assessment/Plan: 1. 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 DAPT with ASA/ Plavix for 30 days, then single agent. Lipitor 2. Diabetes: After tonight discontinue SSI. Continue Januvia and glimepiride. Add back in Invokana 300mg qday tomorrow. 3. Nicotine addiction: Nicotine inhaler PRN 4. DVT Prophylaxis: Heparin S/Q 5. Advance Directives: Full code 11/24/18 11:11
[2018-11-24] MEDS: Atorvastatin* 20 MG TAB PO SCH (17:26)
[2018-11-25] MEDS: Heparin VIAL(*) 5000 UNITS/ML VIAL (FIVE THOUSAND) SUBCUT SCH ×3 (05:08→21:52)
[2018-11-25] MEDS: CANAGLIFLOZIN 300 MG PO SCH (09:42)
[2018-11-25] MEDS: Clopidogrel TAB* 75 MG PO SCH (09:42)
[2018-11-25] MEDS: CMCS:Glimepiride (NF) 2 MG TAB PO SCH (09:43)
[2018-11-25] MEDS: Aspirin EC TAB* 325 MG PO SCH (09:43)
[2018-11-25] MEDS: CMCS:SitaGLIPtin (NF) 100 MG TAB PO SCH (09:43)
--- NOTE | 2018-11-25 10:01 | PN ---
Progress Note Date of Service: 11/25/18 Note: DAVON MEDINA was visited. Nursing notes read and reviewed. Family training tomorrow and looking forward to discharge later in the week. He requests a bedtime snack as per his usual routine at home now that he is on all his home meds for diabetes. No chest pain, shortness of breath or abdominal pain. Current Medications: Active Medications Generic Name Dose Route Start Last Admin Trade Name Freq PRN Reason Stop Dose Admin Acetaminophen 650 mg 11/13/18 13:10 11/21/18 22:04 Tylenol Tab* PO 650 mg Q6H PRN Administration FEVER/PAIN Aspirin 325 mg 11/14/18 09:00 11/25/18 09:43 Ecotrin Ec Tab* PO 325 mg DAILY NANO Administration Atorvastatin Calcium 20 mg 11/13/18 17:00 11/24/18 17:26 Lipitor* PO 20 mg 1700 NANO Administration Canagliflozin 300 mg 11/25/18 09:00 11/25/18 09:42 Invokana (Nf) PO 300 mg DAILY NANO Administration Protocol Clopidogrel Bisulfate 75 mg 11/14/18 09:00 11/25/18 09:42 Plavix Tab* PO 75 mg DAILY NANO Administration Dextrose 12.5 gm 11/13/18 13:25 D50w Syringe 50 Ml* IV PUSH .FOR FS < 60 - SS PRN FS < 60 Docusate Sodium 100 mg 11/17/18 09:48 Colace Cap* PO BID PRN CONSTIPATION Glimepiride 2 mg 11/22/18 08:30 11/25/18 09:43 Glimepiride (Nf) PO 2 mg DAILY WITH MEAL NANO Administration Heparin Sodium (Porcine) 5,000 units 11/13/18 14:00 11/25/18 05:08 Heparin Vial(*) SUBCUT 5,000 units Q8HR NANO Administration Magnesium Hydroxide 30 ml 11/13/18 13:10 Milk Of Magnesia Liq* PO Q6H PRN CONSTIPATION Nicotine 10 mg 11/15/18 21:31 Nicotine Inhaler* INH Q2H PRN CRAVING Senna 2 tab 11/13/18 13:10 Senokot Tab* PO BEDTIME PRN CONSTIPATION Sitagliptin Phosphate 100 mg 11/14/18 09:00 11/25/18 09:43 Januvia (Nf) PO 100 mg DAILY NANO Administration Vital Signs: Vital Signs Temp Pulse Resp BP Pulse Ox 98.4 F 61 18 125/57 99 11/25/18 05:05 11/25/18 05:05 11/25/18 05:05 11/25/18 05:05 11/25/18 05:05 Lab Results: Laboratory Results - last 24 hr 11/24/18 11/24/18 11/24/18 11:39 16:16 20:57 POC Glucose (mg/dL) 157 H 103 H 193 H 11/25/18 08:06 POC Glucose (mg/dL) 152 H Exam: GENERAL: no acute distress. alert and appropriate. LUNGS: Clear to auscultation bilaterally HEART: Regular rate and rhythm ABDOMEN: soft, + bowel sounds, non-tender, non-distended EXTREMITIES: no edema, ecchymosis on right inner upper arm resolving. not tender. NEUROLOGIC: Right facial droop. Dysarthria. Right motor 1-2/5 triceps, 2/5 biceps, 1/5 thumb and finger flexion, RLE 4/5. Left motor 5/5 UE/LE. Normal sensation Assessment/Plan: 1. 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 DAPT with ASA/ Plavix for 30 days, then single agent. Lipitor 2. Diabetes: Discontinued SSI. Continue Januvia and glimepiride. Added back Invokana 300mg qday today. Follow FS. Ordered bedtime snack. 3. Nicotine addiction: Nicotine inhaler PRN 4. DVT Prophylaxis: Heparin S/Q 5. Advance Directives: Full code 6. Estimated LOS: Family training tomorrow with planned d/c later this week. He has home meds being held in the pharmacy that will need to be returned to him. 11/25/18 09:59
[2018-11-25] MEDS: Acetaminophen TAB* 325 MG PO PRN (16:00)
[2018-11-25] MEDS: Atorvastatin* 20 MG TAB PO SCH (17:47)
[2018-11-26] MEDS: Heparin VIAL(*) 5000 UNITS/ML VIAL (FIVE THOUSAND) SUBCUT SCH ×3 (06:28→22:03)
[2018-11-26] MEDS: CMCS:Glimepiride (NF) 2 MG TAB PO SCH (08:42)
[2018-11-26] MEDS: Clopidogrel TAB* 75 MG PO SCH (08:42)
[2018-11-26] MEDS: CANAGLIFLOZIN 300 MG PO SCH (08:42)
[2018-11-26] MEDS: Aspirin EC TAB* 325 MG PO SCH (08:42)
[2018-11-26] MEDS: CMCS:SitaGLIPtin (NF) 100 MG TAB PO SCH (08:42)
[2018-11-26] MEDS: Acetaminophen TAB* 325 MG PO PRN (14:41)
[2018-11-26] MEDS: Atorvastatin* 20 MG TAB PO SCH (17:22)
--- NOTE | 2018-11-26 17:51 | PN ---
Progress Note Date of Service: 11/26/18 Note: DAVON MEDINA was visited. Therapy notes read and reviewed. Excited about discharge tomorrow. His proximal arm is moving better; he has trace finger movements. Current Medications: Active Medications Generic Name Dose Route Start Last Admin Trade Name Freq PRN Reason Stop Dose Admin Acetaminophen 650 mg 11/13/18 13:10 11/26/18 14:41 Tylenol Tab* PO 650 mg Q6H PRN Administration FEVER/PAIN Aspirin 325 mg 11/14/18 09:00 11/26/18 08:42 Ecotrin Ec Tab* PO 325 mg DAILY NANO Administration Atorvastatin Calcium 20 mg 11/13/18 17:00 11/26/18 17:22 Lipitor* PO 20 mg 1700 NANO Administration Canagliflozin 300 mg 11/25/18 09:00 11/26/18 08:42 Invokana (Nf) PO 300 mg DAILY NANO Administration Protocol Clopidogrel Bisulfate 75 mg 11/14/18 09:00 11/26/18 08:42 Plavix Tab* PO 75 mg DAILY NANO Administration Dextrose 12.5 gm 11/13/18 13:25 D50w Syringe 50 Ml* IV PUSH .FOR FS < 60 - SS PRN FS < 60 Docusate Sodium 100 mg 11/17/18 09:48 Colace Cap* PO BID PRN CONSTIPATION Glimepiride 2 mg 11/22/18 08:30 11/26/18 08:42 Glimepiride (Nf) PO 2 mg DAILY WITH MEAL NANO Administration Heparin Sodium (Porcine) 5,000 units 11/13/18 14:00 11/26/18 13:53 Heparin Vial(*) SUBCUT 5,000 units Q8HR NANO Administration Magnesium Hydroxide 30 ml 11/13/18 13:10 Milk Of Magnesia Liq* PO Q6H PRN CONSTIPATION Nicotine 10 mg 11/15/18 21:31 Nicotine Inhaler* INH Q2H PRN CRAVING Senna 2 tab 11/13/18 13:10 Senokot Tab* PO BEDTIME PRN CONSTIPATION Sitagliptin Phosphate 100 mg 11/14/18 09:00 11/26/18 08:42 Januvia (Nf) PO 100 mg DAILY NANO Administration Vital Signs: Vital Signs Temp Pulse Resp BP Pulse Ox 97.4 F 69 20 127/56 97 11/26/18 15:44 11/26/18 15:44 11/26/18 17:28 11/26/18 15:44 11/26/18 17:30 Lab Results: Laboratory Results - last 24 hr 11/25/18 11/26/18 11/26/18 21:07 07:42 12:15 POC Glucose (mg/dL) 128 H 138 H 120 H 11/26/18 16:28 POC Glucose (mg/dL) 194 H Exam: GENERAL: no acute distress. alert and appropriate. LUNGS: Clear to auscultation bilaterally HEART: Regular rate and rhythm ABDOMEN: soft, + bowel sounds, non-tender, non-distended EXTREMITIES: no edema, ecchymosis on right inner upper arm resolving. not tender. NEUROLOGIC: Right facial droop. Dysarthria. Right motor 1-2/5 triceps, 2/5 biceps, trace fingers, RLE 4/5. Left motor 5/5 UE/LE. Normal sensation Assessment/Plan: 1. 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 DAPT with ASA/ Plavix for 30 days, then single agent. Lipitor 2. Diabetes: Discontinued SSI. Continue Januvia and glimepiride. Added back Invokana 300mg qday today. Follow FS. Ordered bedtime snack. 3. Nicotine addiction: Nicotine inhaler PRN 4. DVT Prophylaxis: Heparin S/Q 5. Advance Directives: Full code . 11/26/18 17:52
[2018-11-27] MEDS: Heparin VIAL(*) 5000 UNITS/ML VIAL (FIVE THOUSAND) SUBCUT SCH (05:57)
[2018-11-27 06:44] VITALS: BP 114/64
[2018-11-27] MEDS: CANAGLIFLOZIN 300 MG PO SCH (09:26)
[2018-11-27] MEDS: CMCS:Glimepiride (NF) 2 MG TAB PO SCH (09:26)
[2018-11-27] MEDS: Clopidogrel TAB* 75 MG PO SCH (09:26)
[2018-11-27] MEDS: Aspirin EC TAB* 325 MG PO SCH (09:26)
[2018-11-27] MEDS: CMCS:SitaGLIPtin (NF) 100 MG TAB PO SCH (09:26)
--- NOTE | 2018-11-29 00:58 | DS ---
DISCHARGE SUMMARY: DATE OF ADMISSION: 11/13/18 DATE OF DISCHARGE: 11/27/18 DISCHARGE DIAGNOSES: 1. Left basal ganglia cerebrovascular accident. 2. Diabetes mellitus. 3. Nicotine addiction. 4. Hypertension. 5. Coronary artery disease. HISTORY OF ILLNESS AND HOSPITAL COURSE: For complete history of the events leading up to his rehab stay, please see the history and physical dictated by me on 11/13/18. While on the rehab unit, the patient remained stable from a medical point of view. His blood sugars were in better control after his diabetes medicines Januvia and glimepiride were restarted. The patient was offered nicotine replacement therapy, but declined. He was kept on aspirin and Plavix for secondary stroke prevention. The patient otherwise was medically stable. He was maintained on heparin for DVT prophylaxis. The patient was seen by both Physical and Occupational Therapy and made good gains with both disciplines. With Physical Therapy at the time of admission, the patient required moderate amount assistance to do transfers, moderate amount of assistance to ambulate about 30 feet. With Occupational Therapy at the time of admission, the patient required min assist for upper body dressing, max assist for lower body dressing, mod assist of 2 people for toileting, and min assist of 2 people for toilet transfer. By the time of discharge, the patient was independent with transfers, independent ambulating 300 feet with a quad cane, independent going up and down 4 stairs. He was supervision for bathing. He did require some assistance for dressing for buttons and zippers and to tie his shoes. He was independent with toilet transfers, but did require assistance for fastening and unfastening his pants when toileting. The patient's was brought in for family training prior to discharge. He was discharged home on . DISCHARGE DIET: Consistent carbohydrate. DISCHARGE MEDICATIONS: 1. Aspirin 325 mg daily. 2. Lipitor 20 mg daily. 3. Invokana 300 mg daily. 4. Plavix 75 mg daily. 5. Glimepiride 2 mg daily. 6. Januvia 100 mg daily. SERVICES AFTER DISCHARGE: At [facility], he will have outpatient physical therapy and occupational therapy. Follow up with Dr. Robert Mosher in 1 to 2 months. He will follow up with his primary care doctor when he gets back to his house in [place]. TIME SPENT: Time for this discharge was approximately 50 minutes, greater than half of which was spent with the patient and his discussing post rehabilitation medicine, therapies, and the need for primary care. [id number]/[facility] #: [id number] NUPUR
== END 2018-11-27 13:00 | disposition home or self-care (01) | DRG 57 ==
LOC: PMRU 12:37
PROVIDERS: ADMIT Physical Medicine & Rehabilitation; ATTEND Physical Medicine & Rehabilitation
PROC: F07Z5ZZ Bed Mobility Treatment (ICD-10-PCS; principal; 2018-11-13)
PROC: F07Z9ZZ Gait Training/Functional Ambulation Treatment (ICD-10-PCS; 2018-11-13)
PROC: F07Z8ZZ Transfer Training Treatment (ICD-10-PCS; 2018-11-13)
PROC: F08Z0ZZ Bathing/Showering Techniques Treatment (ICD-10-PCS; 2018-11-13)
PROC: F08Z1ZZ Dressing Techniques Treatment (ICD-10-PCS; 2018-11-13)
PROC: F08Z3ZZ Feeding/Eating Treatment (ICD-10-PCS; 2018-11-13)
PROC: F06Z8ZZ Motor Speech Treatment (ICD-10-PCS; 2018-11-13)
DX: I69.351 Hemiplegia and hemiparesis following cerebral infarction affecting right dominant side (principal); I10 Essential (primary) hypertension; E11.9 Type 2 diabetes mellitus without complications; F17.210 Nicotine dependence, cigarettes, uncomplicated; I25.10 Atherosclerotic heart disease of native coronary artery without angina pectoris; R58 Hemorrhage, not elsewhere classified; M25.421 Effusion, right elbow; Z95.5 Presence of coronary angioplasty implant and graft; Z79.84 Long term (current) use of oral hypoglycemic drugs; Z79.899 Other long term (current) drug therapy; I69.322 Dysarthria following cerebral infarction; I69.392 Facial weakness following cerebral infarction
CPT/HCPCS: 36415; 80053; 85025; A9270-GY; J1644